=== PATIENT | male | born 1935 | race Caucasian/White ===

== ENCOUNTER 2018-11-20 06:00 | Emergency (ER) | payer SELFPAY ==
[~2018-11-20] VITALS: Ht 177.8 cm; Wt 65.3 kg
[2018-11-20 07:16] LABS: HEMATOCRIT. 46.8 % (42.0-52.0); HEMOGLOBIN. 15.7 g/dL (14.0-18.0); MEAN CORPUSCULAR HEMOGLOBIN 30.7 pg (28.0-32.0); MEAN CORPUSCULAR VOLUME 91.1 fL (80.0-94.0); MEAN PLATELET VOLUME 8.7 fl (7.4-10.4); PLATELET 258 x1000/uL (130-400); RED BLOOD CELL COUNT 5.14 mill/uL (4.7-6.1); RED CELL DISTRIBUTION WIDTH 14.6 % (11.6-14.6)
[2018-11-20 07:22] LABS: CHLORIDE 98 mEq/L (98-107)
[2018-11-20 07:26] LABS: ETHANOL BLOOD < 10 mg/dL
[2018-11-20 07:29] LABS: LDL CHOLESTEROL 85 mg/dL (5-100)
[2018-11-20 07:41] LABS: INR 1.1; PROTHROMBIN TIME 11.4 sec (9.6-11.0)
[2018-11-20] MEDS ORDERED: ASPIRIN 325MG EC TABLET PO ONE (08:00)
[2018-11-20] MEDS ORDERED: ACETAMINOPHEN 325MG TABLET PO PRN (08:15)
[2018-11-20] MEDS ORDERED: ONDANSETRON HCL 4MG/2ML INJ IV PRN (08:15)
[2018-11-20 08:51] LABS: PLATELET ESTIMATE NORMAL
[2018-11-20] MEDS ORDERED: CLOPIDOGREL 75MG TABLET PO SCH (09:00)
[2018-11-20 09:25] VITALS: BP 148/91
[2018-11-20] MEDS ORDERED: ATORVASTATIN CALCIUM 40MG TABLET PO SCH (21:00)
== END 2018-11-20 09:44 | disposition left against medical advice (07) ==
LOC: ER 06:00 → EDBEDREQ 08:04 → ENRESERV 08:45 → CANRESERV 08:45 → ER 09:44 → CANBEDREQ 10:10
DX: R53.1 Weakness (principal); I69.354 Hemiplegia and hemiparesis following cerebral infarction affecting left non-dominant side; I10 Essential (primary) hypertension; E78.00 Pure hypercholesterolemia, unspecified; Z88.0 Allergy status to penicillin
CPT/HCPCS: 36415; 71045; 80320; 83721; 84484; 93005; 93880; 99284; G0480

== ENCOUNTER 2019-02-12 11:30 | Inpatient (IN) | payer MEDICARE, MEDICAID, OTHER ==
[2019-02-12] VITALS (50 sets, daily range): BP systolic -7–201; BP diastolic -12–118
[~2019-02-12] VITALS: Ht 167.6 cm; Wt 79.4 kg
[2019-02-12] MEDS ORDERED: SODIUM BICARBONATE 7.5% 0.9 MEQ/ML 50ML SYR IV ONE (11:40)
[2019-02-12] MEDS ORDERED: EPINEPHRINE 0.1MG/ML (1:10,000) 10ML SYR ONE ×2 (11:40→11:55)
[2019-02-12] MEDS ORDERED: ETOMIDATE 2MG/ML 10ML VIAL IV ONE (11:40)
[2019-02-12] MEDS ORDERED: MEROPENEM 1,000 MG in SODIUM CHLORIDE 0.9% 100 ML IV ONE (11:45)
[2019-02-12] MEDS ORDERED: VANCOMYCIN 1 G PREMIX 200 ML IV ONE (11:45)
[2019-02-12 12:14] LABS: BASOPHILS % 0.6 % (0.0-2.0); EOSINOPHILS % 0.8 % (0.0-5.0); HEMATOCRIT. 40.4 % (42.0-52.0); LYMPHOCYTES % 21.9 % (20.0-50.0); MEAN CORPUSCULAR HEMOGLOBIN 29.1 pg (28.0-32.0); MEAN CORPUSCULAR VOLUME 90.6 fL (80.0-94.0); MEAN PLATELET VOLUME 8.9 fl (7.4-10.4); MONOCYTES % 6.9 % (2.0-8.0); NEUTROPHILS % 69.8 % (40.0-76.0); PLATELET 202 x1000/uL (130-400); RED BLOOD CELL COUNT 4.46 mill/uL (4.7-6.1); RED CELL DISTRIBUTION WIDTH 18.1 % (11.6-14.6)
[2019-02-12] MEDS ORDERED: FENTANYL CITRATE/PF 50MCG/ML 2ML VIAL IV ONE (12:15)
[2019-02-12] MEDS ORDERED: MIDAZOLAM HCL 50 MG in DEXTROSE 5% WATER 40 ML IV ONE (12:15)
[2019-02-12 12:22] LABS: CHLORIDE 101 mEq/L (98-107)
[2019-02-12 12:25] LABS: INR 1.3; PROTHROMBIN TIME 12.7 sec (9.6-11.0)
[2019-02-12] MEDS ORDERED: NOREPINEPHRINE 4MG/250ML PMX 250 ML IV ONE (12:42)
[2019-02-12] MEDS ORDERED: NOREPINEPHRINE 4 MG in DEXT 5% WATER 250 ML IV STA (12:52)
[2019-02-12] MEDS ORDERED: ACETAMINOPHEN 325MG TABLET PO PRN (14:15)
[2019-02-12] MEDS ORDERED: MAGNESIUM/ALUMINUM HYDROXIDE/SIMETHICONE 30ML UDC PO PRN (14:15)
[2019-02-12] MEDS ORDERED: IPRATROPIUM/ALBUTEROL 0.5-3(2.5)MG/3ML NEB HHN PRN (14:15)
[2019-02-12] MEDS ORDERED: CLONIDINE 0.1MG TABLET PO PRN (14:15)
[2019-02-12] MEDS ORDERED: SODIUM CHLORIDE 0.9% 1000ML BAG (SEPSIS BOLUS) IV ONE (14:15)
[2019-02-12] MEDS ORDERED: MORPHINE SULFATE 2 MG/ML CPJ (NOT FOR IM USE) IV PRN (14:15)
[2019-02-12] MEDS ORDERED: CEFEPIME 1,000 MG in DEXTROSE 5% WATER 50 ML IV SCH (14:15)
[2019-02-12] MEDS ORDERED: ONDANSETRON HCL 4MG/2ML INJ IV PRN (14:15)
[2019-02-12] MEDS ORDERED: GUAIFENESIN 200MG/10ML SUGAR FREE UDC PO PRN (14:15)
[2019-02-12 14:16] LABS: BG BASE EXCESS 0.4 mmol/L (-2.0-2.0); BG CARBOXYHEMOGLOBIN 0.6 % (0.5-1.5); BG DEOXYHEMOGLOBIN 1.3 % (0.0-5.0); BG FRACTION INSPIRED OXYGEN 100; BG HCO3 ACT 27.7 mmol/L (22.0-26.0); BG METHEMOGLOBIN 0.3 % (0.0-1.5); BG OXYGEN SATURATION 98.7 % (92.0-98.5); BG OXYHEMOGLOBIN 97.8 % (94.0-97.0); BG PCO2 56.2 mmHg (35.0-45.0); BG PO2 147.3 mmHg (75.0-100.0); BG SAMPLE SITE RIGHT BRACHIAL; BG TIDAL VOLUME(mL) 500 mL; BG VENT MODE VENT - A/C; BG VENT RATE 16 set
[2019-02-12] MEDS ORDERED: SODIUM CHLORIDE 0.9% IV SCH (15:00)
[2019-02-12] MEDS ORDERED: DEXT 5%/LACTATED RINGERS 1,000 ML IV SCH (15:14)
[2019-02-12] MEDS: PROPOFOL 10MG/ML 100ML 100 ML IV PRN ×2 (15:41→22:31)
[2019-02-12 15:44] LABS: BG CARBOXYHEMOGLOBIN 0.3 % (0.5-1.5); BG DEOXYHEMOGLOBIN 7.8 % (0.0-5.0); BG FRACTION INSPIRED OXYGEN 80; BG HCO3 ACT 24.9 mmol/L (22.0-26.0); BG METHEMOGLOBIN 0.4 % (0.0-1.5); BG OXYGEN SATURATION 92.1 % (92.0-98.5); BG OXYHEMOGLOBIN 91.5 % (94.0-97.0); BG PCO2 51.5 mmHg (35.0-45.0); BG PH 7.303 (7.350-7.450); BG SAMPLE SITE RIGHT RADIAL; BG TIDAL VOLUME(mL) 500 mL; BG TOTAL HEMOGLOBIN 13.2 g/dL (12.0-18.0); BG VENT MODE VENT - A/C; BG VENT RATE 16 set
[2019-02-12] MEDS ORDERED: PHENYLEPHRINE 40 MG in DEXT 5% WATER 246 ML IV PRN (15:45)
[2019-02-12] MEDS ORDERED: VECURONIUM BROMIDE 10 MG in DEXT 5% WATER 100 ML IV PRN (15:45)
[2019-02-12] MEDS ORDERED: MEPERIDINE HCL/PF 25MG/ML CPJ IV PRN ×2 (15:45)
[2019-02-12] MEDS ORDERED: VASOPRESSIN IV PRN (15:45)
[2019-02-12] MEDS ORDERED: SODIUM CHLORIDE 0.9% IV PRN (15:45)
[2019-02-12] MEDS ORDERED: ACETAMINOPHEN 650MG SUPP PR PRN (15:45)
[2019-02-12] MEDS: DEXT 5%/0.45% NACL 1000ML 1,000 ML IV SCH ×2 (15:45→22:31)
[2019-02-12 15:46] LABS: FOLIC ACID (FOLATE) SERUM 11.4 ng/mL (>5.38)
[2019-02-12] MEDS ORDERED: SODIUM PHOS M BASIC D BASIC IV PRN (16:15)
[2019-02-12] MEDS ORDERED: DEXT IV PRN (16:15)
[2019-02-12] MEDS ORDERED: MAGNESIUM 2 G PREMIX 50 ML IV PRN (16:15)
[2019-02-12] MEDS ORDERED: WATER IV PRN (16:15)
[2019-02-12] MEDS ORDERED: KCL 20MEQ/100ML PREMIX 100 ML IV PRN (16:15)
[2019-02-12] MEDS ORDERED: CALCIUM GLUCONATE 100MG/ML 10ML VIAL IV PRN (16:15)
[2019-02-12] MEDS ORDERED: VASOPRESSIN 10 UNIT in SODIUM CHLORIDE 0.9% 100 ML IV PRN (16:30)
[2019-02-12] MEDS ORDERED: CALCIUM GLUCONATE 2,000 MG in DEXT 5% WATER 90 ML IV PRN (16:30)
[2019-02-12] MEDS ORDERED: LEVOFLOXACIN 500MG PREMIX 100 ML IV SCH (17:00)
[2019-02-12] MEDS: ENOXAPARIN 40MG/0.4ML SYR SUBCUT SCH (17:13)
[2019-02-12] MEDS: FENTANYL CITRATE/PF 500 MCG in SODIUM CHLORIDE 0.9% 40 ML IV PRN (17:31)
[2019-02-12 18:42] LABS: CLARITY URINE CLEAR (CLEAR); COLOR URINE YELLOW (YELLOW); KETONES URINE NEGATIVE (NEGATIVE); LEUKOCYTE ESTERASE URINE NEGATIVE (NEGATIVE); NITRITE URINE NEGATIVE (NEGATIVE); OCCULT BLOOD URINE NEGATIVE (NEGATIVE); PH URINE 6.5 (4.5-8.0); PROTEIN URINE NEGATIVE (NEGATIVE); UROBILINOGEN URINE 0.2 E.U./dL (0.2-1.0)
[2019-02-12 19:10] LABS: *AMPHETAMINES SCREEN URINE NEGATIVE (NEGATIVE); *BARBITURATES SCREEN URINE NEGATIVE (NEGATIVE); CANNABINOID URINE SCREEN NEGATIVE (NEGATIVE); PHENCYCLIDINE URINE SCREEN NEGATIVE (NEGATIVE)
[2019-02-12 19:11] LABS: *BENZODIAZEPINES SCREEN URINE PRESUMTIVE POSITIVE (NEGATIVE); *COCAINE SCREEN URINE NEGATIVE (NEGATIVE); METHADONE URINE SCREEN NEGATIVE (NEGATIVE); OPIATES URINE SCREEN PRESUMTIVE POSITIVE (NEGATIVE)
[2019-02-12] MEDS: IPRATROPIUM/ALBUTEROL 0.5-3(2.5)MG/3ML NEB HHN SCH (20:16)
[2019-02-12 20:48] LABS: CHLORIDE 104 mEq/L (98-107)
[2019-02-12 20:54] LABS: AMYLASE 18 IU/L (25-115)
[2019-02-12 20:57] LABS: CREATINE KINASE 83 IU/L (39-308)
[2019-02-12 21:00] LABS: CREATINE KINASE MB FRACTION 5.2 ng/mL (0.5-3.6)
[2019-02-12 21:26] LABS: HEPATITIS B SURFACE ANTIGEN NEGATIVE
[2019-02-12 21:56] LABS: HEPATITIS A AB IGM NEGATIVE (NEGATIVE)
[2019-02-12] MEDS ORDERED: METRONIDAZOLE 500 MG PREMIX 100 ML IV SCH (22:00)
[2019-02-13] VITALS (115 sets, daily range): BP systolic 0–220; BP diastolic 0–198
[2019-02-13] MEDS: IPRATROPIUM/ALBUTEROL 0.5-3(2.5)MG/3ML NEB HHN SCH ×6 (00:09→20:39)
[2019-02-13] MEDS: FENTANYL CITRATE/PF 500 MCG in SODIUM CHLORIDE 0.9% 40 ML IV PRN ×4 (00:26→17:36)
[2019-02-13 00:31] LABS: HEMATOCRIT. 35.5 % (42.0-52.0); HEMOGLOBIN. 11.5 g/dL (14.0-18.0); MEAN CORPUSCULAR HEMOGLOBIN 28.8 pg (28.0-32.0); MEAN CORPUSCULAR VOLUME 88.6 fL (80.0-94.0); MEAN PLATELET VOLUME 8.9 fl (7.4-10.4); PLATELET 214 x1000/uL (130-400); RED BLOOD CELL COUNT 4.01 mill/uL (4.7-6.1); RED CELL DISTRIBUTION WIDTH 17.4 % (11.6-14.6)
[2019-02-13 00:36] LABS: INR 1.3; PARTIAL THROMBOPLASTIN TIME 35.4 sec (23.4-31.0); PROTHROMBIN TIME 13.3 sec (9.6-11.0)
[2019-02-13 00:57] LABS: PHOSPHORUS 3.5 mg/dL (2.5-4.9)
[2019-02-13 00:58] LABS: PLATELET ESTIMATE NORMAL
[2019-02-13 01:02] LABS: CREATINE KINASE MB FRACTION 5.8 ng/mL (0.5-3.6)
[2019-02-13 01:22] LABS: CHLORIDE 104 mEq/L (98-107)
[2019-02-13] MEDS ORDERED: KCL 20MEQ/100ML PREMIX 50 ML IV PRN (01:45)
[2019-02-13] MEDS ORDERED: KCL 20 MEQ/100 ML IV PRN (01:45)
[2019-02-13] MEDS: MIDAZOLAM HCL 50 MG in DEXTROSE 5% WATER 40 ML IV PRN ×4 (01:56→17:35)
[2019-02-13] MEDS ORDERED: POTASSIUM CHLORIDE INJ 40 MEQ in DEXT 5% WATER 250 ML IV PRN (02:00)
[2019-02-13] MEDS: VANCOMYCIN 1250MG in DEXTROSE 5% WATER 250ML IV SCH ×2 (03:23→20:13)
[2019-02-13 06:14] LABS: CHLORIDE 102 mEq/L (98-107)
[2019-02-13 06:30] LABS: CREATINE KINASE 71 IU/L (39-308)
[2019-02-13 06:34] LABS: CREATINE KINASE MB FRACTION 7.1 ng/mL (0.5-3.6)
[2019-02-13] MEDS: NOREPINEPHRINE 4 MG in DEXT 5% WATER 250 ML IV PRN ×2 (06:37→09:32)
[2019-02-13] MEDS: DEXT 5%/0.45% NACL 1000ML 1,000 ML IV SCH ×2 (06:51→14:55)
[2019-02-13 08:41] LABS: BG BASE EXCESS -2.1 mmol/L (-2.0-2.0); BG CARBOXYHEMOGLOBIN 0.1 % (0.5-1.5); BG DEOXYHEMOGLOBIN 10.8 % (0.0-5.0); BG FRACTION INSPIRED OXYGEN 80; BG HCO3 ACT 27.2 mmol/L (22.0-26.0); BG METHEMOGLOBIN 0.3 % (0.0-1.5); BG OXYGEN SATURATION 89.2 % (92.0-98.5); BG OXYHEMOGLOBIN 88.8 % (94.0-97.0); BG PH 7.213 (7.350-7.450); BG PO2 66.2 mmHg (75.0-100.0); BG SAMPLE SITE A-LINE; BG TIDAL VOLUME(mL) 500 mL; BG VENT MODE VENT - A/C; BG VENT RATE 16 set
[2019-02-13] MEDS ORDERED: PANTOPRAZOLE SODIUM 40 MG/VIAL IV SCH (09:00)
[2019-02-13] MEDS ORDERED: ASPIRIN 325MG EC TABLET PO SCH (09:00)
[2019-02-13] MEDS: PANTOPRAZOLE SODIUM 40 MG/VIAL IV SCH (09:31)
[2019-02-13] MEDS: ASPIRIN 81MG TABLET PO SCH (09:31)
[2019-02-13] MEDS ORDERED: DEXTROSE 50% WATER 50ML SYRINGE IV PRN (11:15)
[2019-02-13] MEDS: BLOOD SUGAR DIAGNOSTIC STRIP TEST SCH ×3 (12:10→20:01)
[2019-02-13 12:31] LABS: HEMOGLOBIN. 12.1 g/dL (14.0-18.0); MEAN CORPUSCULAR VOLUME 88.6 fL (80.0-94.0); MEAN PLATELET VOLUME 8.8 fl (7.4-10.4); PLATELET 195 x1000/uL (130-400); RED BLOOD CELL COUNT 4.18 mill/uL (4.7-6.1); RED CELL DISTRIBUTION WIDTH 17.7 % (11.6-14.6)
[2019-02-13 12:39] LABS: CHLORIDE 104 mEq/L (98-107)
[2019-02-13 12:40] LABS: INR 1.4; PARTIAL THROMBOPLASTIN TIME 35.8 sec (23.4-31.0); PROTHROMBIN TIME 13.9 sec (9.6-11.0)
[2019-02-13 12:46] LABS: PHOSPHORUS 3.2 mg/dL (2.5-4.9)
[2019-02-13 13:15] LABS: PLATELET ESTIMATE NORMAL
[2019-02-13] MEDS ORDERED: SODIUM CHLORIDE 0.9% 500 ML IV NR (13:15)
[2019-02-13] MEDS ORDERED: INSULIN LISPRO 100 UNITS/ML SUBCUT SCH (13:20)
[2019-02-13] MEDS: ENOXAPARIN 40MG/0.4ML SYR SUBCUT SCH (14:54)
[2019-02-13 15:10] LABS: BG BASE EXCESS -1.5 mmol/L (-2.0-2.0); BG CARBOXYHEMOGLOBIN 0.3 % (0.5-1.5); BG DEOXYHEMOGLOBIN 0.7 % (0.0-5.0); BG FRACTION INSPIRED OXYGEN 100; BG HCO3 ACT 26.6 mmol/L (22.0-26.0); BG METHEMOGLOBIN 0.3 % (0.0-1.5); BG OXYGEN SATURATION 99.3 % (92.0-98.5); BG OXYHEMOGLOBIN 98.7 % (94.0-97.0); BG PCO2 60.3 mmHg (35.0-45.0); BG PH 7.262 (7.350-7.450); BG PO2 221.1 mmHg (75.0-100.0); BG SAMPLE SITE A-LINE; BG TIDAL VOLUME(mL) 500 mL; BG TOTAL HEMOGLOBIN 12.6 g/dL (12.0-18.0); BG VENT MODE VENT - A/C; BG VENT RATE 24 set
[2019-02-13] MEDS: INSULIN LISPRO 100 UNITS/ML SUBCUT SCH ×2 (16:00→20:00)
[2019-02-13 16:43] LABS: HEMATOCRIT. 36.1 % (42.0-52.0); HEMOGLOBIN. 11.9 g/dL (14.0-18.0); MEAN CORPUSCULAR HEMOGLOBIN 29.1 pg (28.0-32.0); MEAN CORPUSCULAR VOLUME 88.2 fL (80.0-94.0); MEAN PLATELET VOLUME 8.7 fl (7.4-10.4); PLATELET 174 x1000/uL (130-400); RED BLOOD CELL COUNT 4.09 mill/uL (4.7-6.1); RED CELL DISTRIBUTION WIDTH 17.5 % (11.6-14.6)
[2019-02-13 16:50] LABS: CHLORIDE 103 mEq/L (98-107)
[2019-02-13 16:55] LABS: INR 1.4; PARTIAL THROMBOPLASTIN TIME 37.3 sec (23.4-31.0); PROTHROMBIN TIME 13.9 sec (9.6-11.0)
[2019-02-13 17:00] LABS: PLATELET ESTIMATE NORMAL
[2019-02-13] MEDS ORDERED: LEVOFLOXACIN 500MG PREMIX 100 ML IV SCH (18:30)
[2019-02-13] MEDS ORDERED: ALBUMIN HUMAN 25GM/500ML (5%) IV NR (20:00)
[2019-02-13 20:17] LABS: HEMATOCRIT. 34.4 % (42.0-52.0); HEMOGLOBIN. 11.4 g/dL (14.0-18.0); MEAN CORPUSCULAR HEMOGLOBIN 28.9 pg (28.0-32.0); MEAN CORPUSCULAR VOLUME 87.4 fL (80.0-94.0); MEAN PLATELET VOLUME 8.8 fl (7.4-10.4); PLATELET 162 x1000/uL (130-400); RED BLOOD CELL COUNT 3.94 mill/uL (4.7-6.1); RED CELL DISTRIBUTION WIDTH 17.2 % (11.6-14.6)
[2019-02-13 20:20] LABS: CHLORIDE 103 mEq/L (98-107)
[2019-02-13 20:25] LABS: INR 1.3; PARTIAL THROMBOPLASTIN TIME 37.6 sec (23.4-31.0); PROTHROMBIN TIME 13.6 sec (9.6-11.0)
[2019-02-13 20:53] LABS: PLATELET ESTIMATE NORMAL
[2019-02-13] MEDS: FENTANYL CITRATE/PF 1,000 MCG in SODIUM CHLORIDE 0.9% 80 ML IV PRN (23:11)
[2019-02-13] MEDS: MIDAZOLAM HCL 100 MG in DEXT 5% WATER 80 ML IV PRN (23:12)
[2019-02-14] VITALS (104 sets, daily range): BP systolic 83–143; BP diastolic 20–74
[2019-02-14 00:18] LABS: HEMATOCRIT. 32.2 % (42.0-52.0); HEMOGLOBIN. 10.6 g/dL (14.0-18.0); MEAN CORPUSCULAR HEMOGLOBIN 29.1 pg (28.0-32.0); MEAN CORPUSCULAR VOLUME 88.2 fL (80.0-94.0); MEAN PLATELET VOLUME 8.7 fl (7.4-10.4); PLATELET 143 x1000/uL (130-400); RED BLOOD CELL COUNT 3.65 mill/uL (4.7-6.1); RED CELL DISTRIBUTION WIDTH 17.3 % (11.6-14.6)
[2019-02-14] MEDS: DEXT 5%/0.45% NACL 1000ML 1,000 ML IV SCH ×4 (00:20→23:18)
[2019-02-14] MEDS: BLOOD SUGAR DIAGNOSTIC STRIP TEST SCH ×6 (00:20→20:57)
[2019-02-14 00:26] LABS: CHLORIDE 103 mEq/L (98-107)
[2019-02-14] MEDS: IPRATROPIUM/ALBUTEROL 0.5-3(2.5)MG/3ML NEB HHN SCH ×6 (00:31→20:38)
[2019-02-14 00:34] LABS: CREATINE KINASE 65 IU/L (39-308)
[2019-02-14 00:36] LABS: CREATINE KINASE MB FRACTION 6.8 ng/mL (0.5-3.6)
[2019-02-14] MEDS: NOREPINEPHRINE 4 MG in DEXT 5% WATER 250 ML IV PRN ×2 (00:37→21:35)
[2019-02-14 00:45] LABS: INR 1.4; PARTIAL THROMBOPLASTIN TIME 37.1 sec (23.4-31.0); PROTHROMBIN TIME 13.9 sec (9.6-11.0)
[2019-02-14] MEDS: INSULIN LISPRO 100 UNITS/ML SUBCUT SCH ×6 (03:43→21:18)
[2019-02-14 04:05] LABS: CHLORIDE 103 mEq/L (98-107)
[2019-02-14 04:06] LABS: INR 1.4
[2019-02-14 04:42] LABS: HEMOGLOBIN. 10.6 g/dL (14.0-18.0); MEAN CORPUSCULAR VOLUME 87.8 fL (80.0-94.0); MEAN PLATELET VOLUME 9.1 fl (7.4-10.4); PLATELET 136 x1000/uL (130-400); RED BLOOD CELL COUNT 3.65 mill/uL (4.7-6.1); RED CELL DISTRIBUTION WIDTH 17.3 % (11.6-14.6)
[2019-02-14 05:14] LABS: BG BASE EXCESS -5.3 mmol/L (-2.0-2.0); BG CARBOXYHEMOGLOBIN 0.1 % (0.5-1.5); BG DEOXYHEMOGLOBIN 1.2 % (0.0-5.0); BG FRACTION INSPIRED OXYGEN 100; BG HCO3 ACT 21.1 mmol/L (22.0-26.0); BG METHEMOGLOBIN 0.3 % (0.0-1.5); BG OXYGEN SATURATION 98.8 % (92.0-98.5); BG OXYHEMOGLOBIN 98.4 % (94.0-97.0); BG PCO2 44.3 mmHg (35.0-45.0); BG PH 7.295 (7.350-7.450); BG PO2 153.9 mmHg (75.0-100.0); BG SAMPLE SITE A-LINE; BG TIDAL VOLUME(mL) 550 mL; BG TOTAL HEMOGLOBIN 11.4 g/dL (12.0-18.0); BG VENT MODE VENT - A/C; BG VENT RATE 24 set
[2019-02-14 07:12] LABS: HIV SCREEN 4G Non Reactive (Non Reactive)
[2019-02-14] MEDS: ASPIRIN 81MG TABLET PO SCH (08:06)
[2019-02-14] MEDS: PANTOPRAZOLE SODIUM 40 MG/VIAL IV SCH (08:06)
[2019-02-14 09:36] LABS: BASOPHILS % 0.2 % (0.0-2.0); HEMATOCRIT. 29.9 % (42.0-52.0); LYMPHOCYTES % 11.6 % (20.0-50.0); MEAN CORPUSCULAR HEMOGLOBIN 28.5 pg (28.0-32.0); MEAN CORPUSCULAR VOLUME 85.7 fL (80.0-94.0); MEAN PLATELET VOLUME 9.2 fl (7.4-10.4); MONOCYTES % 5.9 % (2.0-8.0); NEUTROPHILS % 82.3 % (40.0-76.0); PLATELET 215 x1000/uL (130-400); RED CELL DISTRIBUTION WIDTH 15.9 % (11.6-14.6)
[2019-02-14] MEDS: CLOPIDOGREL 75MG TABLET PO SCH (09:45)
[2019-02-14] MEDS: METHYLPREDNISOLONE SOD SUCC 125 MG/2 ML VIAL IV SCH ×3 (09:45→23:15)
[2019-02-14 09:57] LABS: CHLORIDE 117 mEq/L (98-107)
[2019-02-14 10:08] LABS: PLATELET ESTIMATE NORMAL
[2019-02-14 10:12] LABS: PLATELET ESTIMATE NORMAL
[2019-02-14 10:16] LABS: INR 1.3; PARTIAL THROMBOPLASTIN TIME 37.8 sec (23.4-31.0); PROTHROMBIN TIME 13.7 sec (9.6-11.0)
[2019-02-14] MEDS ORDERED: PHENYLEPHRINE 20 MG in DEXT 5% WATER 248 ML IV PRN (10:30)
[2019-02-14] MEDS: FENTANYL CITRATE/PF 1,000 MCG in SODIUM CHLORIDE 0.9% 80 ML IV PRN ×2 (11:32→19:48)
[2019-02-14] MEDS ORDERED: LIDOCAINE HCL 1% 20ML VIAL (Pyxis) INJ ONE (12:45)
[2019-02-14] MEDS: LEVETIRACETAM 500 MG in SODIUM CHLORIDE 0.9% 100 ML IV SCH ×2 (14:26→23:15)
[2019-02-14] MEDS ORDERED: ENOXAPARIN 30MG/0.3ML SYR SUBCUT SCH (15:00)
[2019-02-14] MEDS ORDERED: VANCOMYCIN 750 MG PREMIX 150 ML IV SCH (15:00)
[2019-02-14 15:07] LABS: CHLORIDE 103 mEq/L (98-107)
[2019-02-14] MEDS: MIDAZOLAM HCL 100 MG in DEXT 5% WATER 80 ML IV PRN (15:17)
[2019-02-14] MEDS: ENOXAPARIN 60MG/0.6ML SYR SUBCUT SCH (15:20)
[2019-02-14] MEDS: ASPIRIN 81MG EC TABLET PO SCH (15:20)
[2019-02-14 15:23] LABS: CLARITY URINE CLEAR (CLEAR); COLOR URINE YELLOW (YELLOW); KETONES URINE NEGATIVE (NEGATIVE); LEUKOCYTE ESTERASE URINE NEGATIVE (NEGATIVE); NITRITE URINE NEGATIVE (NEGATIVE); OCCULT BLOOD URINE NEGATIVE (NEGATIVE); PROTEIN URINE NEGATIVE (NEGATIVE); SPECIFIC GRAVITY URINE 1.005 (1.005-1.030); UROBILINOGEN URINE 0.2 E.U./dL (0.2-1.0)
[2019-02-14] MEDS: LEVOFLOXACIN 250MG PREMIX 50 ML IV SCH (18:02)
[2019-02-14] MEDS: ATORVASTATIN CALCIUM 20MG TABLET PO SCH (21:04)
[2019-02-15] VITALS (96 sets, daily range): BP systolic 85–138; BP diastolic 49–84
[2019-02-15] MEDS: IPRATROPIUM/ALBUTEROL 0.5-3(2.5)MG/3ML NEB HHN SCH ×6 (00:44→20:28)
[2019-02-15] MEDS: BLOOD SUGAR DIAGNOSTIC STRIP TEST SCH ×6 (04:00→20:00)
[2019-02-15] MEDS: METHYLPREDNISOLONE SOD SUCC 125 MG/2 ML VIAL IV SCH ×4 (05:10→21:30)
[2019-02-15] MEDS: INSULIN LISPRO 100 UNITS/ML SUBCUT SCH ×6 (05:18→21:37)
[2019-02-15 06:06] LABS: HEMATOCRIT. 33.6 % (42.0-52.0); MEAN CORPUSCULAR HEMOGLOBIN 29.1 pg (28.0-32.0); MEAN PLATELET VOLUME 9.6 fl (7.4-10.4); PLATELET 133 x1000/uL (130-400); RED BLOOD CELL COUNT 3.78 mill/uL (4.7-6.1); RED CELL DISTRIBUTION WIDTH 17.7 % (11.6-14.6)
[2019-02-15 06:21] LABS: CHLORIDE 103 mEq/L (98-107)
[2019-02-15 06:28] LABS: PHOSPHORUS 3.4 mg/dL (2.5-4.9)
[2019-02-15 06:31] LABS: CREATINE KINASE 51 IU/L (39-308)
[2019-02-15 06:33] LABS: CREATINE KINASE MB FRACTION 3.6 ng/mL (0.5-3.6)
[2019-02-15] MEDS: DEXT 5%/0.45% NACL 1000ML 1,000 ML IV SCH (07:45)
[2019-02-15] MEDS ORDERED: ASPIRIN 325MG TABLET PO SCH (09:00)
[2019-02-15] MEDS: ASPIRIN 81MG EC TABLET PO SCH (09:11)
[2019-02-15] MEDS: PANTOPRAZOLE SODIUM 40 MG/VIAL IV SCH (09:11)
[2019-02-15] MEDS: LEVETIRACETAM 500 MG in SODIUM CHLORIDE 0.9% 100 ML IV SCH ×2 (09:11→21:30)
[2019-02-15] MEDS: CLOPIDOGREL 75MG TABLET PO SCH (09:11)
[2019-02-15 09:31] LABS: BG BASE EXCESS -5.5 mmol/L (-2.0-2.0); BG CARBOXYHEMOGLOBIN 0.3 % (0.5-1.5); BG DEOXYHEMOGLOBIN 0.7 % (0.0-5.0); BG FRACTION INSPIRED OXYGEN 100; BG METHEMOGLOBIN 0.3 % (0.0-1.5); BG OXYGEN SATURATION 99.3 % (92.0-98.5); BG OXYHEMOGLOBIN 98.7 % (94.0-97.0); BG PCO2 52.5 mmHg (35.0-45.0); BG PH 7.241 (7.350-7.450); BG PO2 185.4 mmHg (75.0-100.0); BG SAMPLE SITE RIGHT BRACHIAL; BG TIDAL VOLUME(mL) 550 mL; BG TOTAL HEMOGLOBIN 11.4 g/dL (12.0-18.0); BG VENT MODE VENT - A/C; BG VENT RATE 24 set
[2019-02-15] MEDS ORDERED: MAGNESIUM 2 G PREMIX 50 ML IV NR (10:00)
[2019-02-15 11:01] LABS: PLATELET ESTIMATE NORMAL
[2019-02-15 12:20] LABS: BG BASE EXCESS -8.5 mmol/L (-2.0-2.0); BG CARBOXYHEMOGLOBIN 0.3 % (0.5-1.5); BG DEOXYHEMOGLOBIN 6.7 % (0.0-5.0); BG FRACTION INSPIRED OXYGEN 80; BG HCO3 ACT 17.7 mmol/L (22.0-26.0); BG METHEMOGLOBIN 0.1 % (0.0-1.5); BG OXYGEN SATURATION 93.3 % (92.0-98.5); BG OXYHEMOGLOBIN 92.9 % (94.0-97.0); BG PCO2 39.2 mmHg (35.0-45.0); BG PH 7.273 (7.350-7.450); BG PO2 77.7 mmHg (75.0-100.0); BG SAMPLE SITE RIGHT RADIAL; BG TIDAL VOLUME(mL) 550 mL; BG TOTAL HEMOGLOBIN 11.4 g/dL (12.0-18.0); BG VENT MODE VENT - A/C; BG VENT RATE 28 set
[2019-02-15] MEDS: VANCOMYCIN 1250MG in DEXTROSE 5% WATER 250ML IV SCH (12:41)
[2019-02-15] MEDS: DEXT 5%/0.9% NACL 1,000 ML IV SCH (13:25)
[2019-02-15] MEDS: ENOXAPARIN 60MG/0.6ML SYR SUBCUT SCH (14:37)
[2019-02-15] MEDS: LEVOFLOXACIN 250MG PREMIX 50 ML IV SCH (17:00)
[2019-02-15] MEDS: ATORVASTATIN CALCIUM 20MG TABLET PO SCH (21:30)
[2019-02-16] VITALS (62 sets, daily range): BP systolic 107–152; BP diastolic 51–101
[2019-02-16] MEDS: IPRATROPIUM/ALBUTEROL 0.5-3(2.5)MG/3ML NEB HHN SCH ×5 (00:26→20:24)
[2019-02-16] MEDS: BLOOD SUGAR DIAGNOSTIC STRIP TEST SCH ×5 (01:01→17:16)
[2019-02-16] MEDS: METHYLPREDNISOLONE SOD SUCC 125 MG/2 ML VIAL IV SCH ×4 (05:09→21:25)
[2019-02-16] MEDS: INSULIN LISPRO 100 UNITS/ML SUBCUT SCH ×5 (05:13→17:18)
[2019-02-16] MEDS: VANCOMYCIN 1250MG in DEXTROSE 5% WATER 250ML IV SCH (05:16)
[2019-02-16 05:49] LABS: HEMATOCRIT. 32.8 % (42.0-52.0); HEMOGLOBIN. 10.9 g/dL (14.0-18.0); MEAN CORPUSCULAR HEMOGLOBIN 28.9 pg (28.0-32.0); MEAN CORPUSCULAR VOLUME 87.1 fL (80.0-94.0); MEAN PLATELET VOLUME 9.7 fl (7.4-10.4); PLATELET 127 x1000/uL (130-400); RED BLOOD CELL COUNT 3.77 mill/uL (4.7-6.1); RED CELL DISTRIBUTION WIDTH 17.4 % (11.6-14.6)
[2019-02-16 05:58] LABS: CHLORIDE 106 mEq/L (98-107)
[2019-02-16 06:04] LABS: PHOSPHORUS 2.3 mg/dL (2.5-4.9)
[2019-02-16 08:12] LABS: INR 1.1; PROTHROMBIN TIME 11.8 sec (9.6-11.0)
[2019-02-16] MEDS: DEXT 5%/0.9% NACL 1,000 ML IV SCH (08:49)
[2019-02-16] MEDS: PANTOPRAZOLE SODIUM 40 MG/VIAL IV SCH (09:16)
[2019-02-16] MEDS: ASPIRIN 81MG EC TABLET PO SCH (09:16)
[2019-02-16] MEDS: LEVETIRACETAM 500 MG in SODIUM CHLORIDE 0.9% 100 ML IV SCH ×2 (09:17→21:25)
[2019-02-16] MEDS: CLOPIDOGREL 75MG TABLET PO SCH (09:23)
[2019-02-16 09:31] LABS: BG BASE EXCESS -2.8 mmol/L (-2.0-2.0); BG CARBOXYHEMOGLOBIN 0.1 % (0.5-1.5); BG DEOXYHEMOGLOBIN 1.8 % (0.0-5.0); BG FRACTION INSPIRED OXYGEN 80; BG HCO3 ACT 22.1 mmol/L (22.0-26.0); BG METHEMOGLOBIN 0.4 % (0.0-1.5); BG OXYGEN SATURATION 98.2 % (92.0-98.5); BG OXYHEMOGLOBIN 97.7 % (94.0-97.0); BG PCO2 38.7 mmHg (35.0-45.0); BG PH 7.374 (7.350-7.450); BG PO2 115.8 mmHg (75.0-100.0); BG SAMPLE SITE RIGHT BRACHIAL; BG TIDAL VOLUME(mL) 550 mL; BG TOTAL HEMOGLOBIN 11.3 g/dL (12.0-18.0); BG VENT MODE VENT - A/C; BG VENT RATE 28 set
[2019-02-16 09:58] LABS: CREATINE KINASE MB FRACTION 1.7 ng/mL (0.5-3.6)
[2019-02-16] MEDS ORDERED: SODIUM PHOS,M-BASIC-D-BASIC 15 MM in DEXT 5% WATER 245 ML IV NR (10:00)
[2019-02-16] MEDS: METOCLOPRAMIDE HCL 10MG/2ML VIAL IV SCH ×2 (12:37→17:16)
[2019-02-16 14:24] LABS: PLATELET ESTIMATE SLIGHTLY DECREASED
[2019-02-16] MEDS: ENOXAPARIN 60MG/0.6ML SYR SUBCUT SCH (15:05)
[2019-02-16] MEDS: LEVOFLOXACIN 500MG PREMIX 100 ML IV SCH (17:17)
[2019-02-16] MEDS: ATORVASTATIN CALCIUM 20MG TABLET PO SCH (21:25)
[2019-02-17] VITALS (44 sets, daily range): BP systolic 121–152; BP diastolic 72–97
[2019-02-17] MEDS: IPRATROPIUM/ALBUTEROL 0.5-3(2.5)MG/3ML NEB HHN SCH ×6 (00:09→20:44)
[2019-02-17] MEDS: VANCOMYCIN 1250MG in DEXTROSE 5% WATER 250ML IV SCH ×2 (01:19→17:12)
[2019-02-17] MEDS: METOCLOPRAMIDE HCL 10MG/2ML VIAL IV SCH ×4 (01:19→17:12)
[2019-02-17] MEDS: METHYLPREDNISOLONE SOD SUCC 125 MG/2 ML VIAL IV SCH (04:16)
[2019-02-17] MEDS: BLOOD SUGAR DIAGNOSTIC STRIP TEST SCH ×4 (05:27→17:59)
[2019-02-17] MEDS: DEXT 5%/0.9% NACL 1,000 ML IV SCH (05:28)
[2019-02-17] MEDS: INSULIN LISPRO 100 UNITS/ML SUBCUT SCH ×4 (05:32→17:59)
[2019-02-17 06:16] LABS: HEMATOCRIT. 34.3 % (42.0-52.0); HEMOGLOBIN. 11.3 g/dL (14.0-18.0); MEAN CORPUSCULAR VOLUME 87.6 fL (80.0-94.0); MEAN PLATELET VOLUME 9.7 fl (7.4-10.4); PLATELET 111 x1000/uL (130-400); RED BLOOD CELL COUNT 3.91 mill/uL (4.7-6.1); RED CELL DISTRIBUTION WIDTH 18.2 % (11.6-14.6)
[2019-02-17 06:29] LABS: CHLORIDE 106 mEq/L (98-107)
[2019-02-17 06:40] LABS: PHOSPHORUS 2.1 mg/dL (2.5-4.9)
[2019-02-17 08:34] LABS: BG BASE EXCESS -0.6 mmol/L (-2.0-2.0); BG CARBOXYHEMOGLOBIN 0.3 % (0.5-1.5); BG DEOXYHEMOGLOBIN 8.5 % (0.0-5.0); BG FRACTION INSPIRED OXYGEN 60; BG HCO3 ACT 22.6 mmol/L (22.0-26.0); BG METHEMOGLOBIN 0.1 % (0.0-1.5); BG OXYGEN SATURATION 91.5 % (92.0-98.5); BG OXYHEMOGLOBIN 91.1 % (94.0-97.0); BG PCO2 32.5 mmHg (35.0-45.0); BG SAMPLE SITE LEFT RADIAL; BG TOTAL HEMOGLOBIN 12.5 g/dL (12.0-18.0); BG VENT MODE VENT - A/C; BG VENT RATE 28 set
[2019-02-17] MEDS ORDERED: MAGNESIUM 2 G PREMIX 50 ML IV NR (09:00)
[2019-02-17] MEDS ORDERED: LORAZEPAM 2MG/ML CPJ IV PRN (09:15)
[2019-02-17] MEDS: LEVETIRACETAM 500 MG in SODIUM CHLORIDE 0.9% 100 ML IV SCH ×2 (09:18→22:29)
[2019-02-17] MEDS: CLOPIDOGREL 75MG TABLET PO SCH (09:18)
[2019-02-17] MEDS: ASPIRIN 81MG EC TABLET PO SCH (09:18)
[2019-02-17 10:08] LABS: PLATELET ESTIMATE SLIGHTLY DECREASED
[2019-02-17] MEDS: MORPHINE SULFATE 2 MG/ML CPJ (NOT FOR IM USE) IV PRN ×3 (11:09→16:37)
[2019-02-17] MEDS: PANTOPRAZOLE SODIUM 40 MG/VIAL IV SCH (11:45)
[2019-02-17] MEDS: LORAZEPAM 2MG/ML CPJ IV PRN ×3 (11:45→16:37)
[2019-02-17] MEDS: AZTREONAM 2GM in DEXTROSE 5% WATER 100ML IV SCH ×2 (11:45→19:22)
[2019-02-17] MEDS: LOSARTAN POTASSIUM 25 MG TABLET PO SCH (12:15)
[2019-02-17] MEDS: METHYLPREDNISOLONE SOD SUCC 40 MG/ML VIAL IV SCH ×2 (13:12→22:35)
[2019-02-17] MEDS ORDERED: SODIUM PHOS,M-BASIC-D-BASIC 15 MM in DEXT 5% WATER 245 ML IV SCH (13:30)
[2019-02-17] MEDS: ENOXAPARIN 60MG/0.6ML SYR SUBCUT SCH (14:28)
[2019-02-17] MEDS: LEVOFLOXACIN 500MG PREMIX 100 ML IV SCH (17:13)
[2019-02-17] MEDS: ASCORBIC ACID 500 MG TABLET PO SCH (20:42)
[2019-02-17] MEDS: ZINC SULFATE 220 MG ( 50 ) CAPSULE PO SCH (20:42)
[2019-02-18] VITALS (36 sets, daily range): BP systolic 135–163; BP diastolic 74–97
[2019-02-18] MEDS: METOCLOPRAMIDE HCL 10MG/2ML VIAL IV SCH ×4 (00:03→17:14)
[2019-02-18] MEDS: BLOOD SUGAR DIAGNOSTIC STRIP TEST SCH ×4 (00:03→18:12)
[2019-02-18] MEDS: IPRATROPIUM/ALBUTEROL 0.5-3(2.5)MG/3ML NEB HHN SCH ×7 (00:46→20:42)
[2019-02-18] MEDS: AZTREONAM 2GM in DEXTROSE 5% WATER 100ML IV SCH ×3 (04:08→19:56)
[2019-02-18 05:43] LABS: HEMATOCRIT. 34.4 % (42.0-52.0); HEMOGLOBIN. 11.5 g/dL (14.0-18.0); MEAN CORPUSCULAR HEMOGLOBIN 28.9 pg (28.0-32.0); MEAN CORPUSCULAR VOLUME 86.3 fL (80.0-94.0); MEAN PLATELET VOLUME 9.2 fl (7.4-10.4); PLATELET 86 x1000/uL (130-400); RED BLOOD CELL COUNT 3.99 mill/uL (4.7-6.1); RED CELL DISTRIBUTION WIDTH 18.3 % (11.6-14.6)
[2019-02-18 05:55] LABS: CHLORIDE 107 mEq/L (98-107)
[2019-02-18 06:06] LABS: PHOSPHORUS 3.3 mg/dL (2.5-4.9)
[2019-02-18] MEDS: METHYLPREDNISOLONE SOD SUCC 40 MG/ML VIAL IV SCH ×3 (06:09→21:09)
[2019-02-18] MEDS: INSULIN LISPRO 100 UNITS/ML SUBCUT SCH ×4 (06:17→17:14)
[2019-02-18 07:35] LABS: BG BASE EXCESS -2.6 mmol/L (-2.0-2.0); BG CARBOXYHEMOGLOBIN 0.4 % (0.5-1.5); BG DEOXYHEMOGLOBIN 3.9 % (0.0-5.0); BG FRACTION INSPIRED OXYGEN 80; BG HCO3 ACT 21.5 mmol/L (22.0-26.0); BG METHEMOGLOBIN 0.3 % (0.0-1.5); BG OXYGEN SATURATION 96.1 % (92.0-98.5); BG OXYHEMOGLOBIN 95.4 % (94.0-97.0); BG PCO2 34.9 mmHg (35.0-45.0); BG PH 7.407 (7.350-7.450); BG PO2 86.6 mmHg (75.0-100.0); BG SAMPLE SITE LEFT RADIAL; BG TIDAL VOLUME(mL) 550 mL; BG TOTAL HEMOGLOBIN 12.4 g/dL (12.0-18.0); BG VENT MODE VENT - A/C; BG VENT RATE 20 set
[2019-02-18] MEDS: PANTOPRAZOLE SODIUM 40 MG/VIAL IV SCH (08:54)
[2019-02-18] MEDS: LEVETIRACETAM 500 MG in SODIUM CHLORIDE 0.9% 100 ML IV SCH (08:55)
[2019-02-18] MEDS: LOSARTAN POTASSIUM 25 MG TABLET PO SCH (08:55)
[2019-02-18] MEDS: ZINC SULFATE 220 MG ( 50 ) CAPSULE PO SCH (08:56)
[2019-02-18] MEDS: DOCUSATE SODIUM 100MG CAPSULE PO PRN (08:56)
[2019-02-18] MEDS: ASCORBIC ACID 500 MG TABLET PO SCH (08:56)
[2019-02-18] MEDS: ASPIRIN 81MG EC TABLET PO SCH (09:00)
[2019-02-18] MEDS: CLOPIDOGREL 75MG TABLET PO SCH (09:00)
[2019-02-18 09:11] LABS: PLATELET ESTIMATE SLIGHTLY DECREASED
[2019-02-18] MEDS ORDERED: IOHEXOL-350 100 ML BOTTLE ONE (10:47)
[2019-02-18] MEDS: AMLODIPINE 2.5MG TABLET PO SCH ×2 (11:56→21:09)
[2019-02-18] MEDS: VANCOMYCIN 1250MG in DEXTROSE 5% WATER 250ML IV SCH (11:56)
[2019-02-18] MEDS: LORAZEPAM 2MG/ML CPJ IV PRN (16:36)
[2019-02-18] MEDS: MORPHINE SULFATE 2 MG/ML CPJ (NOT FOR IM USE) IV PRN (16:37)
[2019-02-18] MEDS: LEVOFLOXACIN 500MG PREMIX 100 ML IV SCH (17:14)
[2019-02-19] VITALS (23 sets, daily range): BP systolic 109–154; BP diastolic 69–99
[2019-02-19] MEDS: IPRATROPIUM/ALBUTEROL 0.5-3(2.5)MG/3ML NEB HHN SCH ×6 (00:38→20:33)
[2019-02-19] MEDS: LEVETIRACETAM 500 MG in SODIUM CHLORIDE 0.9% 100 ML IV SCH ×3 (01:34→21:02)
[2019-02-19] MEDS: METOCLOPRAMIDE HCL 10MG/2ML VIAL IV SCH ×5 (01:35→23:34)
[2019-02-19] MEDS: INSULIN LISPRO 100 UNITS/ML SUBCUT SCH ×5 (01:46→23:34)
[2019-02-19] MEDS: AZTREONAM 2GM in DEXTROSE 5% WATER 100ML IV SCH ×3 (04:24→21:00)
[2019-02-19 05:40] LABS: HEMATOCRIT. 34.3 % (42.0-52.0); HEMOGLOBIN. 11.5 g/dL (14.0-18.0); MEAN CORPUSCULAR VOLUME 86.2 fL (80.0-94.0); MEAN PLATELET VOLUME 9.6 fl (7.4-10.4); PLATELET 77 x1000/uL (130-400); RED BLOOD CELL COUNT 3.98 mill/uL (4.7-6.1); RED CELL DISTRIBUTION WIDTH 18.2 % (11.6-14.6)
[2019-02-19 05:58] LABS: CHLORIDE 107 mEq/L (98-107)
[2019-02-19 06:04] LABS: PHOSPHORUS 3.3 mg/dL (2.5-4.9)
[2019-02-19] MEDS: BLOOD SUGAR DIAGNOSTIC STRIP TEST SCH ×5 (06:32→23:34)
[2019-02-19] MEDS: VANCOMYCIN 1250MG in DEXTROSE 5% WATER 250ML IV SCH (06:32)
[2019-02-19] MEDS: METHYLPREDNISOLONE SOD SUCC 40 MG/ML VIAL IV SCH ×3 (06:32→21:06)
[2019-02-19] MEDS: AMLODIPINE 2.5MG TABLET PO SCH ×2 (08:24→21:00)
[2019-02-19] MEDS: ASCORBIC ACID 500 MG TABLET PO SCH (08:24)
[2019-02-19] MEDS: LOSARTAN POTASSIUM 25 MG TABLET PO SCH ×2 (08:24→21:00)
[2019-02-19] MEDS: DOCUSATE SODIUM 100MG CAPSULE PO PRN (08:24)
[2019-02-19] MEDS: ZINC SULFATE 220 MG ( 50 ) CAPSULE PO SCH (08:24)
[2019-02-19] MEDS: PANTOPRAZOLE SODIUM 40 MG/VIAL IV SCH (08:26)
[2019-02-19 08:42] LABS: BG BASE EXCESS -4.2 mmol/L (-2.0-2.0); BG CARBOXYHEMOGLOBIN 0.3 % (0.5-1.5); BG DEOXYHEMOGLOBIN 2.1 % (0.0-5.0); BG FRACTION INSPIRED OXYGEN 80; BG HCO3 ACT 19.9 mmol/L (22.0-26.0); BG METHEMOGLOBIN 0.3 % (0.0-1.5); BG OXYGEN SATURATION 97.9 % (92.0-98.5); BG OXYHEMOGLOBIN 97.3 % (94.0-97.0); BG PCO2 33.6 mmHg (35.0-45.0); BG PH 7.391 (7.350-7.450); BG PO2 115.7 mmHg (75.0-100.0); BG SAMPLE SITE LEFT BRACHIAL; BG TIDAL VOLUME(mL) 550 mL; BG TOTAL HEMOGLOBIN 12.7 g/dL (12.0-18.0); BG VENT MODE VENT - A/C; BG VENT RATE 20 set
[2019-02-19 12:31] LABS: PLATELET ESTIMATE DECREASED
[2019-02-19] MEDS ORDERED: LACTULOSE 20G/30ML UDC PO NR (12:45)
[2019-02-19] MEDS ORDERED: BISACODYL 10MG SUPP PR PRN (12:45)
[2019-02-19] MEDS: DOCUSATE SODIUM SUGAR FREE 100MG/10ML UDC NG SCH (13:44)
[2019-02-19] MEDS: LEVOFLOXACIN 500MG PREMIX 100 ML IV SCH (17:08)
[2019-02-20] VITALS (24 sets, daily range): BP systolic 115–144; BP diastolic 64–91
[2019-02-20] MEDS: IPRATROPIUM/ALBUTEROL 0.5-3(2.5)MG/3ML NEB HHN SCH ×6 (00:24→21:17)
[2019-02-20] MEDS: AZTREONAM 2GM in DEXTROSE 5% WATER 100ML IV SCH ×3 (03:29→21:04)
[2019-02-20 05:24] LABS: HEMATOCRIT. 33.9 % (42.0-52.0); HEMOGLOBIN. 11.2 g/dL (14.0-18.0); MEAN CORPUSCULAR HEMOGLOBIN 28.6 pg (28.0-32.0); MEAN CORPUSCULAR VOLUME 86.7 fL (80.0-94.0); MEAN PLATELET VOLUME 9.5 fl (7.4-10.4); PLATELET 80 x1000/uL (130-400); RED BLOOD CELL COUNT 3.91 mill/uL (4.7-6.1); RED CELL DISTRIBUTION WIDTH 18.3 % (11.6-14.6)
[2019-02-20 05:26] LABS: CHLORIDE 106 mEq/L (98-107)
[2019-02-20 05:35] LABS: PHOSPHORUS 3.5 mg/dL (2.5-4.9)
[2019-02-20] MEDS: METHYLPREDNISOLONE SOD SUCC 40 MG/ML VIAL IV SCH ×2 (05:46→17:15)
[2019-02-20] MEDS: INSULIN LISPRO 100 UNITS/ML SUBCUT SCH ×4 (05:46→23:20)
[2019-02-20] MEDS: METOCLOPRAMIDE HCL 10MG/2ML VIAL IV SCH ×4 (05:46→23:20)
[2019-02-20] MEDS: BLOOD SUGAR DIAGNOSTIC STRIP TEST SCH ×4 (05:54→23:17)
[2019-02-20] MEDS: DOCUSATE SODIUM SUGAR FREE 100MG/10ML UDC NG SCH (08:10)
[2019-02-20] MEDS: LEVETIRACETAM 500 MG in SODIUM CHLORIDE 0.9% 100 ML IV SCH ×2 (08:10→21:04)
[2019-02-20] MEDS: ASCORBIC ACID 500 MG TABLET PO SCH (08:11)
[2019-02-20] MEDS: PANTOPRAZOLE SODIUM 40 MG/VIAL IV SCH (08:11)
[2019-02-20] MEDS: ZINC SULFATE 220 MG ( 50 ) CAPSULE PO SCH (08:11)
[2019-02-20] MEDS: LOSARTAN POTASSIUM 25 MG TABLET PO SCH ×2 (08:11→21:00)
[2019-02-20] MEDS: AMLODIPINE 2.5MG TABLET PO SCH ×2 (08:11→21:00)
[2019-02-20 08:18] LABS: BG BASE EXCESS 0.9 mmol/L (-2.0-2.0); BG CARBOXYHEMOGLOBIN 0.3 % (0.5-1.5); BG DEOXYHEMOGLOBIN 11.6 % (0.0-5.0); BG FRACTION INSPIRED OXYGEN 75; BG METHEMOGLOBIN 0.1 % (0.0-1.5); BG OXYGEN SATURATION 88.4 % (92.0-98.5); BG PH 7.436 (7.350-7.450); BG PO2 56.4 mmHg (75.0-100.0); BG SAMPLE SITE RIGHT RADIAL; BG TIDAL VOLUME(mL) 550 mL; BG TOTAL HEMOGLOBIN 12.8 g/dL (12.0-18.0); BG VENT MODE VENT - A/C; BG VENT RATE 20 set
[2019-02-20 11:27] LABS: PLATELET ESTIMATE SLIGHTLY DECREASED
[2019-02-20] MEDS ORDERED: LACTULOSE 20G/30ML UDC PO NR (12:00)
[2019-02-20] MEDS: LEVOFLOXACIN 500MG PREMIX 100 ML IV SCH (17:15)
[2019-02-21] VITALS (24 sets, daily range): BP systolic 102–142; BP diastolic 58–89
[2019-02-21] MEDS: IPRATROPIUM/ALBUTEROL 0.5-3(2.5)MG/3ML NEB HHN SCH ×5 (00:44→20:20)
[2019-02-21] MEDS: AZTREONAM 2GM in DEXTROSE 5% WATER 100ML IV SCH ×3 (03:25→20:09)
[2019-02-21 05:17] LABS: CHLORIDE 107 mEq/L (98-107)
[2019-02-21 05:20] LABS: HEMATOCRIT. 33.8 % (42.0-52.0); HEMOGLOBIN. 11.2 g/dL (14.0-18.0); MEAN CORPUSCULAR HEMOGLOBIN 28.6 pg (28.0-32.0); MEAN CORPUSCULAR VOLUME 86.3 fL (80.0-94.0); MEAN PLATELET VOLUME 9.4 fl (7.4-10.4); PLATELET 88 x1000/uL (130-400); RED BLOOD CELL COUNT 3.92 mill/uL (4.7-6.1); RED CELL DISTRIBUTION WIDTH 18.2 % (11.6-14.6)
[2019-02-21] MEDS: BLOOD SUGAR DIAGNOSTIC STRIP TEST SCH ×3 (05:26→17:25)
[2019-02-21] MEDS: INSULIN LISPRO 100 UNITS/ML SUBCUT SCH ×3 (05:26→17:25)
[2019-02-21] MEDS: METOCLOPRAMIDE HCL 10MG/2ML VIAL IV SCH ×3 (05:26→17:25)
[2019-02-21] MEDS: PANTOPRAZOLE SODIUM 40 MG/VIAL IV SCH (08:06)
[2019-02-21] MEDS: DOCUSATE SODIUM SUGAR FREE 100MG/10ML UDC NG SCH (08:06)
[2019-02-21] MEDS: AMLODIPINE 2.5MG TABLET PO SCH ×2 (08:07→20:53)
[2019-02-21] MEDS: ASCORBIC ACID 500 MG TABLET PO SCH (08:07)
[2019-02-21] MEDS: ZINC SULFATE 220 MG ( 50 ) CAPSULE PO SCH (08:07)
[2019-02-21] MEDS: METHYLPREDNISOLONE SOD SUCC 40 MG/ML VIAL IV SCH ×2 (08:07→17:24)
[2019-02-21] MEDS: LOSARTAN POTASSIUM 25 MG TABLET PO SCH ×2 (08:07→20:53)
[2019-02-21 08:41] LABS: PLATELET ESTIMATE SLIGHTLY DECREASED
[2019-02-21 09:05] LABS: BG CARBOXYHEMOGLOBIN 0.2 % (0.5-1.5); BG DEOXYHEMOGLOBIN 1.8 % (0.0-5.0); BG FRACTION INSPIRED OXYGEN 90; BG METHEMOGLOBIN 0.3 % (0.0-1.5); BG OXYGEN SATURATION 98.2 % (92.0-98.5); BG OXYHEMOGLOBIN 97.7 % (94.0-97.0); BG PCO2 34.9 mmHg (35.0-45.0); BG PH 7.417 (7.350-7.450); BG PO2 126.2 mmHg (75.0-100.0); BG SAMPLE SITE RIGHT BRACHIAL; BG TIDAL VOLUME(mL) 550 mL; BG TOTAL HEMOGLOBIN 12.1 g/dL (12.0-18.0); BG VENT MODE VENT - A/C; BG VENT RATE 20 set
[2019-02-21] MEDS: LEVETIRACETAM 500 MG in SODIUM CHLORIDE 0.9% 100 ML IV SCH ×2 (09:14→21:02)
[2019-02-21] MEDS: LEVOFLOXACIN 500MG PREMIX 100 ML IV SCH (17:25)
[2019-02-22] VITALS (36 sets, daily range): BP systolic 66–147; BP diastolic 32–95
[2019-02-22] MEDS: BLOOD SUGAR DIAGNOSTIC STRIP TEST SCH ×4 (00:25→18:40)
[2019-02-22] MEDS: METOCLOPRAMIDE HCL 10MG/2ML VIAL IV SCH ×5 (00:25→23:56)
[2019-02-22] MEDS: IPRATROPIUM/ALBUTEROL 0.5-3(2.5)MG/3ML NEB HHN SCH ×6 (00:36→20:37)
[2019-02-22] MEDS: AZTREONAM 2GM in DEXTROSE 5% WATER 100ML IV SCH ×3 (03:40→21:19)
[2019-02-22] MEDS: INSULIN LISPRO 100 UNITS/ML SUBCUT SCH ×4 (06:18→18:00)
[2019-02-22] MEDS: LEVETIRACETAM 500 MG in SODIUM CHLORIDE 0.9% 100 ML IV SCH ×2 (08:33→21:20)
[2019-02-22] MEDS: LOSARTAN POTASSIUM 25 MG TABLET PO SCH ×2 (08:33→21:00)
[2019-02-22] MEDS: DOCUSATE SODIUM 100MG CAPSULE PO PRN (08:33)
[2019-02-22] MEDS: ZINC SULFATE 220 MG ( 50 ) CAPSULE PO SCH (08:33)
[2019-02-22] MEDS: ASCORBIC ACID 500 MG TABLET PO SCH (08:33)
[2019-02-22] MEDS: METHYLPREDNISOLONE SOD SUCC 40 MG/ML VIAL IV SCH (08:33)
[2019-02-22] MEDS: PANTOPRAZOLE SODIUM 40 MG/VIAL IV SCH (08:33)
[2019-02-22] MEDS: DOCUSATE SODIUM SUGAR FREE 100MG/10ML UDC NG SCH (08:34)
[2019-02-22] MEDS: AMLODIPINE 2.5MG TABLET PO SCH ×2 (08:34→21:00)
[2019-02-22 09:23] LABS: HEMOGLOBIN. 11.8 g/dL (14.0-18.0); MEAN CORPUSCULAR HEMOGLOBIN 28.4 pg (28.0-32.0); MEAN CORPUSCULAR VOLUME 86.4 fL (80.0-94.0); MEAN PLATELET VOLUME 9.3 fl (7.4-10.4); PLATELET 109 x1000/uL (130-400); RED BLOOD CELL COUNT 4.17 mill/uL (4.7-6.1); RED CELL DISTRIBUTION WIDTH 18.6 % (11.6-14.6)
[2019-02-22 09:30] LABS: BG BASE EXCESS 2.2 mmol/L (-2.0-2.0); BG CARBOXYHEMOGLOBIN 0.3 % (0.5-1.5); BG DEOXYHEMOGLOBIN 3.9 % (0.0-5.0); BG FRACTION INSPIRED OXYGEN 70; BG HCO3 ACT 25.7 mmol/L (22.0-26.0); BG METHEMOGLOBIN 0.3 % (0.0-1.5); BG OXYGEN SATURATION 96.1 % (92.0-98.5); BG OXYHEMOGLOBIN 95.5 % (94.0-97.0); BG PCO2 36.4 mmHg (35.0-45.0); BG PH 7.467 (7.350-7.450); BG PO2 83.7 mmHg (75.0-100.0); BG SAMPLE SITE RIGHT BRACHIAL; BG TIDAL VOLUME(mL) 550 mL; BG TOTAL HEMOGLOBIN 12.3 g/dL (12.0-18.0); BG VENT MODE VENT - A/C; BG VENT RATE 20 set
[2019-02-22 09:32] LABS: CHLORIDE 106 mEq/L (98-107)
[2019-02-22 10:08] LABS: PLATELET ESTIMATE DECREASED
[2019-02-22] MEDS: LORAZEPAM 2MG/ML CPJ IV PRN (14:11)
[2019-02-22] MEDS: MORPHINE SULFATE 2 MG/ML CPJ (NOT FOR IM USE) IV PRN (16:14)
[2019-02-23] VITALS (59 sets, daily range): BP systolic 92–144; BP diastolic 51–86
[2019-02-23] MEDS: BLOOD SUGAR DIAGNOSTIC STRIP TEST SCH ×4 (00:03→17:31)
[2019-02-23] MEDS: INSULIN LISPRO 100 UNITS/ML SUBCUT SCH ×4 (00:03→17:35)
[2019-02-23] MEDS: IPRATROPIUM/ALBUTEROL 0.5-3(2.5)MG/3ML NEB HHN SCH ×6 (00:42→19:56)
[2019-02-23] MEDS: AZTREONAM 2GM in DEXTROSE 5% WATER 100ML IV SCH ×3 (04:32→20:13)
[2019-02-23] MEDS: METOCLOPRAMIDE HCL 10MG/2ML VIAL IV SCH ×4 (05:15→23:45)
[2019-02-23] MEDS: MORPHINE SULFATE 2 MG/ML CPJ (NOT FOR IM USE) IV PRN (07:23)
[2019-02-23 07:54] LABS: BG BASE EXCESS 3.3 mmol/L (-2.0-2.0); BG CARBOXYHEMOGLOBIN 0.1 % (0.5-1.5); BG DEOXYHEMOGLOBIN 9.5 % (0.0-5.0); BG HCO3 ACT 26.5 mmol/L (22.0-26.0); BG METHEMOGLOBIN 0.3 % (0.0-1.5); BG OXYGEN SATURATION 90.5 % (92.0-98.5); BG OXYHEMOGLOBIN 90.1 % (94.0-97.0); BG PCO2 35.6 mmHg (35.0-45.0); BG PO2 57.3 mmHg (75.0-100.0); BG SAMPLE SITE RIGHT BRACHIAL; BG TIDAL VOLUME(mL) 550 mL; BG TOTAL HEMOGLOBIN 12.6 g/dL (12.0-18.0); BG VENT MODE VENT - A/C; BG VENT RATE 20 set
[2019-02-23] MEDS: DOCUSATE SODIUM SUGAR FREE 100MG/10ML UDC NG SCH (08:29)
[2019-02-23] MEDS: METHYLPREDNISOLONE SOD SUCC 40 MG/ML VIAL IV SCH (08:29)
[2019-02-23] MEDS: AMLODIPINE 2.5MG TABLET PO SCH ×2 (08:29→21:00)
[2019-02-23] MEDS: LOSARTAN POTASSIUM 25 MG TABLET PO SCH ×2 (08:29→21:00)
[2019-02-23] MEDS: PANTOPRAZOLE SODIUM 40 MG/VIAL IV SCH (08:29)
[2019-02-23] MEDS: ZINC SULFATE 220 MG ( 50 ) CAPSULE PO SCH (08:29)
[2019-02-23] MEDS: ASCORBIC ACID 500 MG TABLET PO SCH (08:30)
[2019-02-23] MEDS: SODIUM CHLORIDE 0.9% 1,000 ML IV SCH ×2 (08:30→17:34)
[2019-02-23] MEDS: LEVETIRACETAM 500 MG in SODIUM CHLORIDE 0.9% 100 ML IV SCH ×2 (08:32→21:14)
[2019-02-23 12:56] LABS: CHLORIDE 104 mEq/L (98-107)
[2019-02-23] MEDS ORDERED: FENTANYL CITRATE/PF 50MCG/ML 2ML VIAL ONE (12:57)
[2019-02-23] MEDS ORDERED: MIDAZOLAM HCL 5 MG/5 ML VIAL ONE (12:58)
[2019-02-23] MEDS: DEXTROSE 5% WATER 1,000 ML IV SCH (22:46)
[2019-02-24] VITALS (77 sets, daily range): BP systolic 88–154; BP diastolic 14–109
[2019-02-24] MEDS: IPRATROPIUM/ALBUTEROL 0.5-3(2.5)MG/3ML NEB HHN SCH ×6 (00:50→20:50)
[2019-02-24] MEDS: AZTREONAM 2GM in DEXTROSE 5% WATER 100ML IV SCH ×3 (03:25→21:20)
[2019-02-24] MEDS: BLOOD SUGAR DIAGNOSTIC STRIP TEST SCH ×4 (05:47→18:24)
[2019-02-24] MEDS: METOCLOPRAMIDE HCL 10MG/2ML VIAL IV SCH ×3 (05:54→18:29)
[2019-02-24] MEDS: INSULIN LISPRO 100 UNITS/ML SUBCUT SCH ×4 (05:55→18:00)
[2019-02-24] MEDS: DOCUSATE SODIUM SUGAR FREE 100MG/10ML UDC NG SCH (07:26)
[2019-02-24] MEDS: LOSARTAN POTASSIUM 25 MG TABLET PO SCH ×2 (07:27→21:00)
[2019-02-24] MEDS: ASCORBIC ACID 500 MG TABLET PO SCH (07:27)
[2019-02-24] MEDS: AMLODIPINE 2.5MG TABLET PO SCH ×2 (07:27→21:00)
[2019-02-24] MEDS: ZINC SULFATE 220 MG ( 50 ) CAPSULE PO SCH (07:27)
[2019-02-24] MEDS: PANTOPRAZOLE SODIUM 40 MG/VIAL IV SCH (09:00)
[2019-02-24] MEDS: LEVETIRACETAM 500 MG in SODIUM CHLORIDE 0.9% 100 ML IV SCH ×2 (09:00→21:20)
[2019-02-24] MEDS: METHYLPREDNISOLONE SOD SUCC 40 MG/ML VIAL IV SCH (09:00)
[2019-02-24 09:14] LABS: BG BASE EXCESS -2.2 mmol/L (-2.0-2.0); BG CARBOXYHEMOGLOBIN 0.9 % (0.5-1.5); BG DEOXYHEMOGLOBIN 14.7 % (0.0-5.0); BG FRACTION INSPIRED OXYGEN 70; BG HCO3 ACT 21.2 mmol/L (22.0-26.0); BG METHEMOGLOBIN 0.3 % (0.0-1.5); BG OXYGEN SATURATION 85.1 % (92.0-98.5); BG OXYHEMOGLOBIN 84.1 % (94.0-97.0); BG PCO2 32.1 mmHg (35.0-45.0); BG PH 7.437 (7.350-7.450); BG PO2 52.4 mmHg (75.0-100.0); BG SAMPLE SITE RIGHT RADIAL; BG TIDAL VOLUME(mL) 550 mL; BG TOTAL HEMOGLOBIN 12.1 g/dL (12.0-18.0); BG VENT MODE VENT - A/C; BG VENT RATE 20 set
[2019-02-24 09:24] LABS: HEMATOCRIT. 31.2 % (42.0-52.0); HEMOGLOBIN. 10.2 g/dL (14.0-18.0); MEAN CORPUSCULAR HEMOGLOBIN 28.6 pg (28.0-32.0); MEAN CORPUSCULAR VOLUME 87.7 fL (80.0-94.0); MEAN PLATELET VOLUME 10.1 fl (7.4-10.4); PLATELET 131 x1000/uL (130-400); RED BLOOD CELL COUNT 3.56 mill/uL (4.7-6.1)
[2019-02-24 09:46] LABS: CHLORIDE 114 mEq/L (98-107)
[2019-02-24 10:51] LABS: BG BASE EXCESS -0.8 mmol/L (-2.0-2.0); BG CARBOXYHEMOGLOBIN 0.5 % (0.5-1.5); BG DEOXYHEMOGLOBIN 0.6 % (0.0-5.0); BG FRACTION INSPIRED OXYGEN 100; BG HCO3 ACT 23.4 mmol/L (22.0-26.0); BG METHEMOGLOBIN 0.2 % (0.0-1.5); BG OXYGEN SATURATION 99.4 % (92.0-98.5); BG OXYHEMOGLOBIN 98.7 % (94.0-97.0); BG PCO2 37.4 mmHg (35.0-45.0); BG PH 7.415 (7.350-7.450); BG PO2 251.2 mmHg (75.0-100.0); BG SAMPLE SITE LEFT RADIAL; BG TIDAL VOLUME(mL) 550 mL; BG TOTAL HEMOGLOBIN 12.5 g/dL (12.0-18.0); BG VENT MODE VENT - A/C; BG VENT RATE 20 set
[2019-02-24] MEDS: ASPIRIN 81MG EC TABLET PO SCH (11:30)
[2019-02-24 12:17] LABS: PLATELET ESTIMATE NORMAL
[2019-02-24] MEDS: DEXTROSE 5% WATER 1,000 ML IV SCH ×2 (12:19→23:11)
[2019-02-24] MEDS: ACETYLCYSTEINE 100MG/ML 10% VIAL 4ML INH SCH ×2 (12:39→16:31)
[2019-02-24 12:51] LABS: BG BASE EXCESS -1.6 mmol/L (-2.0-2.0); BG CARBOXYHEMOGLOBIN 0.8 % (0.5-1.5); BG DEOXYHEMOGLOBIN 7.7 % (0.0-5.0); BG FRACTION INSPIRED OXYGEN 80; BG HCO3 ACT 22.4 mmol/L (22.0-26.0); BG METHEMOGLOBIN 0.3 % (0.0-1.5); BG OXYGEN SATURATION 92.2 % (92.0-98.5); BG OXYHEMOGLOBIN 91.2 % (94.0-97.0); BG PCO2 35.3 mmHg (35.0-45.0); BG PO2 69.4 mmHg (75.0-100.0); BG SAMPLE SITE LEFT RADIAL; BG TIDAL VOLUME(mL) 550 mL; BG TOTAL HEMOGLOBIN 12.3 g/dL (12.0-18.0); BG VENT MODE VENT - A/C; BG VENT RATE 20 set
[2019-02-24] MEDS ORDERED: MIDAZOLAM HCL 2 MG/2 ML VIAL ONE (17:24)
[2019-02-24] MEDS ORDERED: ROCURONIUM BROMIDE 10MG/ML VIAL 5ML IV ONE (17:24)
[2019-02-24] MEDS ORDERED: SKIN ADHESIVE 0.7 GM EA TOP ONE (18:00)
[2019-02-25] VITALS (26 sets, daily range): BP systolic 109–145; BP diastolic 49–84
[2019-02-25] MEDS: METOCLOPRAMIDE HCL 10MG/2ML VIAL IV SCH ×4 (00:09→17:42)
[2019-02-25] MEDS: BLOOD SUGAR DIAGNOSTIC STRIP TEST SCH ×4 (00:09→17:37)
[2019-02-25] MEDS: IPRATROPIUM/ALBUTEROL 0.5-3(2.5)MG/3ML NEB HHN SCH ×6 (00:18→20:30)
[2019-02-25] MEDS: ACETYLCYSTEINE 100MG/ML 10% VIAL 4ML INH SCH ×2 (00:18→15:46)
[2019-02-25 05:19] LABS: HEMATOCRIT. 32.1 % (42.0-52.0); HEMOGLOBIN. 10.4 g/dL (14.0-18.0); MEAN CORPUSCULAR HEMOGLOBIN 28.7 pg (28.0-32.0); MEAN CORPUSCULAR VOLUME 88.8 fL (80.0-94.0); MEAN PLATELET VOLUME 10.2 fl (7.4-10.4); PLATELET 148 x1000/uL (130-400); RED BLOOD CELL COUNT 3.62 mill/uL (4.7-6.1); RED CELL DISTRIBUTION WIDTH 18.8 % (11.6-14.6)
[2019-02-25 05:28] LABS: CHLORIDE 97 mEq/L (98-107)
[2019-02-25] MEDS: INSULIN LISPRO 100 UNITS/ML SUBCUT SCH ×4 (06:00→17:37)
[2019-02-25] MEDS: SODIUM CHLORIDE 0.45% 1,000 ML IV SCH ×2 (06:50→23:36)
[2019-02-25 06:59] LABS: BG BASE EXCESS 0.1 mmol/L (-2.0-2.0); BG CARBOXYHEMOGLOBIN 0.6 % (0.5-1.5); BG DEOXYHEMOGLOBIN 3.2 % (0.0-5.0); BG HCO3 ACT 23.8 mmol/L (22.0-26.0); BG METHEMOGLOBIN 0.4 % (0.0-1.5); BG OXYGEN SATURATION 96.8 % (92.0-98.5); BG OXYHEMOGLOBIN 95.8 % (94.0-97.0); BG PCO2 35.6 mmHg (35.0-45.0); BG PH 7.443 (7.350-7.450); BG PO2 91.7 mmHg (75.0-100.0); BG SAMPLE SITE RIGHT BRACHIAL; BG TIDAL VOLUME(mL) 550 mL; BG TOTAL HEMOGLOBIN 12.2 g/dL (12.0-18.0); BG VENT MODE VENT - A/C; BG VENT RATE 20 set
[2019-02-25] MEDS: ASPIRIN 81MG EC TABLET PO SCH (09:19)
[2019-02-25] MEDS: METHYLPREDNISOLONE SOD SUCC 40 MG/ML VIAL IV SCH (09:19)
[2019-02-25] MEDS: LOSARTAN POTASSIUM 25 MG TABLET PO SCH ×2 (09:20→21:26)
[2019-02-25] MEDS: DOCUSATE SODIUM SUGAR FREE 100MG/10ML UDC NG SCH (09:20)
[2019-02-25] MEDS: ASCORBIC ACID 500 MG TABLET PO SCH (09:20)
[2019-02-25] MEDS: AMLODIPINE 2.5MG TABLET PO SCH ×2 (09:48→21:26)
[2019-02-25] MEDS: ZINC SULFATE 220 MG ( 50 ) CAPSULE PO SCH (09:49)
[2019-02-25] MEDS: PANTOPRAZOLE SODIUM 40 MG/VIAL IV SCH (09:49)
[2019-02-25] MEDS: LEVETIRACETAM 500 MG in SODIUM CHLORIDE 0.9% 100 ML IV SCH (09:49)
[2019-02-25 16:05] LABS: PLATELET ESTIMATE NORMAL
[2019-02-26] VITALS (12 sets, daily range): BP systolic 99–123; BP diastolic 25–80
[2019-02-26] MEDS: ACETYLCYSTEINE 100MG/ML 10% VIAL 4ML INH SCH ×3 (00:07→16:50)
[2019-02-26] MEDS: IPRATROPIUM/ALBUTEROL 0.5-3(2.5)MG/3ML NEB HHN SCH ×6 (00:08→19:49)
[2019-02-26] MEDS: LEVETIRACETAM 500 MG in SODIUM CHLORIDE 0.9% 100 ML IV SCH ×3 (00:14→21:57)
[2019-02-26] MEDS: METOCLOPRAMIDE HCL 10MG/2ML VIAL IV SCH ×4 (00:26→17:52)
[2019-02-26] MEDS: BLOOD SUGAR DIAGNOSTIC STRIP TEST SCH ×4 (00:26→17:19)
[2019-02-26] MEDS: LORAZEPAM 2MG/ML CPJ IV PRN ×2 (03:06→13:41)
[2019-02-26] MEDS: INSULIN LISPRO 100 UNITS/ML SUBCUT SCH ×4 (06:00→17:52)
[2019-02-26 08:08] LABS: HEMATOCRIT. 32.8 % (42.0-52.0); HEMOGLOBIN. 10.6 g/dL (14.0-18.0); MEAN CORPUSCULAR HEMOGLOBIN 28.3 pg (28.0-32.0); MEAN CORPUSCULAR VOLUME 87.4 fL (80.0-94.0); PLATELET 167 x1000/uL (130-400); RED BLOOD CELL COUNT 3.76 mill/uL (4.7-6.1); RED CELL DISTRIBUTION WIDTH 19.1 % (11.6-14.6)
[2019-02-26 08:10] LABS: CHLORIDE 105 mEq/L (98-107)
[2019-02-26] MEDS: PANTOPRAZOLE SODIUM 40 MG/VIAL IV SCH (08:12)
[2019-02-26] MEDS: METHYLPREDNISOLONE SOD SUCC 40 MG/ML VIAL IV SCH (08:12)
[2019-02-26] MEDS: ASPIRIN 81MG EC TABLET PO SCH (08:12)
[2019-02-26] MEDS: ASCORBIC ACID 500 MG TABLET PO SCH (08:12)
[2019-02-26] MEDS: ZINC SULFATE 220 MG ( 50 ) CAPSULE PO SCH (08:12)
[2019-02-26] MEDS: DOCUSATE SODIUM SUGAR FREE 100MG/10ML UDC NG SCH (08:13)
[2019-02-26] MEDS: LOSARTAN POTASSIUM 25 MG TABLET PO SCH ×2 (08:13→20:40)
[2019-02-26] MEDS: AMLODIPINE 2.5MG TABLET PO SCH ×2 (08:13→20:40)
[2019-02-26 08:40] LABS: BG BASE EXCESS -2.2 mmol/L (-2.0-2.0); BG CARBOXYHEMOGLOBIN 0.3 % (0.5-1.5); BG FRACTION INSPIRED OXYGEN 70; BG HCO3 ACT 20.5 mmol/L (22.0-26.0); BG METHEMOGLOBIN 0.3 % (0.0-1.5); BG OXYHEMOGLOBIN 94.4 % (94.0-97.0); BG PCO2 29.1 mmHg (35.0-45.0); BG PH 7.466 (7.350-7.450); BG PO2 75.8 mmHg (75.0-100.0); BG SAMPLE SITE LEFT RADIAL; BG TIDAL VOLUME(mL) 550 mL; BG TOTAL HEMOGLOBIN 11.6 g/dL (12.0-18.0); BG VENT MODE VENT - A/C; BG VENT RATE 16 set
[2019-02-26 13:28] LABS: PLATELET ESTIMATE NORMAL
[2019-02-26] MEDS: SODIUM CHLORIDE 0.45% 1,000 ML IV SCH (15:25)
[2019-02-26] MEDS ORDERED: LORAZEPAM 2MG/ML CPJ IV PRN (17:00)
[2019-02-27] VITALS (11 sets, daily range): BP systolic 96–124; BP diastolic 61–75
[2019-02-27] MEDS: IPRATROPIUM/ALBUTEROL 0.5-3(2.5)MG/3ML NEB HHN SCH ×6 (00:01→20:14)
[2019-02-27] MEDS: ACETYLCYSTEINE 100MG/ML 10% VIAL 4ML INH SCH ×4 (00:01→16:24)
[2019-02-27] MEDS: BLOOD SUGAR DIAGNOSTIC STRIP TEST SCH ×4 (00:22→17:49)
[2019-02-27] MEDS: METOCLOPRAMIDE HCL 10MG/2ML VIAL IV SCH ×4 (00:22→18:05)
[2019-02-27] MEDS: INSULIN LISPRO 100 UNITS/ML SUBCUT SCH ×4 (05:42→17:49)
[2019-02-27] MEDS: SODIUM CHLORIDE 0.45% 1,000 ML IV SCH (07:20)
[2019-02-27] MEDS: LOSARTAN POTASSIUM 25 MG TABLET PO SCH ×2 (08:23→20:52)
[2019-02-27] MEDS: AMLODIPINE 2.5MG TABLET PO SCH ×2 (08:23→20:52)
[2019-02-27] MEDS: ZINC SULFATE 220 MG ( 50 ) CAPSULE PO SCH (08:24)
[2019-02-27] MEDS: METHYLPREDNISOLONE SOD SUCC 40 MG/ML VIAL IV SCH (08:24)
[2019-02-27] MEDS: PANTOPRAZOLE SODIUM 40 MG/VIAL IV SCH (08:24)
[2019-02-27] MEDS: DOCUSATE SODIUM SUGAR FREE 100MG/10ML UDC NG SCH (08:24)
[2019-02-27] MEDS: ASPIRIN 81MG EC TABLET PO SCH (08:24)
[2019-02-27] MEDS: ASCORBIC ACID 500 MG TABLET PO SCH (08:24)
[2019-02-27] MEDS: LEVETIRACETAM 500 MG in SODIUM CHLORIDE 0.9% 100 ML IV SCH ×2 (08:26→21:09)
[2019-02-27] MEDS: MORPHINE SULFATE 2 MG/ML CPJ (NOT FOR IM USE) IV PRN (13:13)
[2019-02-27] MEDS ORDERED: LORAZEPAM 2MG/ML CPJ IV PRN (13:15)
[2019-02-27 13:32] LABS: BG BASE EXCESS -0.7 mmol/L (-2.0-2.0); BG CARBOXYHEMOGLOBIN 0.5 % (0.5-1.5); BG DEOXYHEMOGLOBIN 18.8 % (0.0-5.0); BG FRACTION INSPIRED OXYGEN 100; BG HCO3 ACT 23.7 mmol/L (22.0-26.0); BG METHEMOGLOBIN 0.2 % (0.0-1.5); BG OXYGEN SATURATION 81.1 % (92.0-98.5); BG OXYHEMOGLOBIN 80.5 % (94.0-97.0); BG PCO2 38.2 mmHg (35.0-45.0); BG PH 7.411 (7.350-7.450); BG PO2 50.9 mmHg (75.0-100.0); BG SAMPLE SITE LEFT RADIAL; BG TIDAL VOLUME(mL) 550 mL; BG TOTAL HEMOGLOBIN 12.5 g/dL (12.0-18.0); BG VENT MODE VENT - A/C; BG VENT RATE 14 set
[2019-02-28] VITALS (11 sets, daily range): BP systolic 85–162; BP diastolic 46–87
[2019-02-28] MEDS: BLOOD SUGAR DIAGNOSTIC STRIP TEST SCH ×5 (00:07→23:55)
[2019-02-28] MEDS: METOCLOPRAMIDE HCL 10MG/2ML VIAL IV SCH ×5 (00:08→23:55)
[2019-02-28] MEDS: IPRATROPIUM/ALBUTEROL 0.5-3(2.5)MG/3ML NEB HHN SCH ×6 (00:28→21:16)
[2019-02-28] MEDS: ACETYLCYSTEINE 100MG/ML 10% VIAL 4ML INH SCH ×3 (00:45→16:22)
[2019-02-28] MEDS: SODIUM CHLORIDE 0.45% 1,000 ML IV SCH ×2 (01:42→17:50)
[2019-02-28] MEDS: INSULIN LISPRO 100 UNITS/ML SUBCUT SCH ×5 (05:29→23:55)
[2019-02-28] MEDS: AMLODIPINE 2.5MG TABLET PO SCH ×2 (09:00→20:52)
[2019-02-28] MEDS: LOSARTAN POTASSIUM 25 MG TABLET PO SCH ×2 (09:00→20:53)
[2019-02-28] MEDS: PANTOPRAZOLE SODIUM 40 MG/VIAL IV SCH (09:40)
[2019-02-28] MEDS: LEVETIRACETAM 500 MG in SODIUM CHLORIDE 0.9% 100 ML IV SCH ×2 (09:40→20:52)
[2019-02-28] MEDS: ASPIRIN 81MG EC TABLET PO SCH (09:40)
[2019-02-28] MEDS: METHYLPREDNISOLONE SOD SUCC 40 MG/ML VIAL IV SCH (09:40)
[2019-02-28] MEDS: ASCORBIC ACID 500 MG TABLET PO SCH (09:40)
[2019-02-28] MEDS: DOCUSATE SODIUM SUGAR FREE 100MG/10ML UDC NG SCH (09:40)
[2019-02-28] MEDS: ZINC SULFATE 220 MG ( 50 ) CAPSULE PO SCH (09:40)
[2019-03-01] VITALS (12 sets, daily range): BP systolic 93–145; BP diastolic 27–96
[2019-03-01] MEDS: IPRATROPIUM/ALBUTEROL 0.5-3(2.5)MG/3ML NEB HHN SCH ×6 (00:25→20:11)
[2019-03-01] MEDS: ACETYLCYSTEINE 100MG/ML 10% VIAL 4ML INH SCH ×2 (00:26→08:24)
[2019-03-01] MEDS: LORAZEPAM 2MG/ML CPJ IV PRN (05:26)
[2019-03-01] MEDS: INSULIN LISPRO 100 UNITS/ML SUBCUT SCH ×4 (06:00→23:37)
[2019-03-01] MEDS: BLOOD SUGAR DIAGNOSTIC STRIP TEST SCH ×4 (06:11→23:32)
[2019-03-01] MEDS: METOCLOPRAMIDE HCL 10MG/2ML VIAL IV SCH ×4 (06:11→23:32)
[2019-03-01 08:37] LABS: BG BASE EXCESS 1.5 mmol/L (-2.0-2.0); BG CARBOXYHEMOGLOBIN 0.1 % (0.5-1.5); BG DEOXYHEMOGLOBIN 3.9 % (0.0-5.0); BG FRACTION INSPIRED OXYGEN 70; BG HCO3 ACT 25.1 mmol/L (22.0-26.0); BG METHEMOGLOBIN 0.2 % (0.0-1.5); BG OXYGEN SATURATION 96.1 % (92.0-98.5); BG OXYHEMOGLOBIN 95.8 % (94.0-97.0); BG PCO2 36.4 mmHg (35.0-45.0); BG PH 7.457 (7.350-7.450); BG SAMPLE SITE RIGHT RADIAL; BG TIDAL VOLUME(mL) 550 mL; BG VENT MODE VENT - A/C; BG VENT RATE 14 set
[2019-03-01] MEDS: LEVETIRACETAM 500 MG in SODIUM CHLORIDE 0.9% 100 ML IV SCH ×2 (08:51→21:11)
[2019-03-01] MEDS: ASPIRIN 81MG EC TABLET PO SCH (08:52)
[2019-03-01] MEDS: ZINC SULFATE 220 MG ( 50 ) CAPSULE PO SCH (08:52)
[2019-03-01] MEDS: ASCORBIC ACID 500 MG TABLET PO SCH (08:52)
[2019-03-01] MEDS: AMLODIPINE 2.5MG TABLET PO SCH ×2 (08:52→21:00)
[2019-03-01] MEDS: LOSARTAN POTASSIUM 25 MG TABLET PO SCH ×2 (08:52→21:00)
[2019-03-01] MEDS: PANTOPRAZOLE SODIUM 40 MG/VIAL IV SCH (08:52)
[2019-03-01] MEDS: DOCUSATE SODIUM SUGAR FREE 100MG/10ML UDC NG SCH (08:53)
[2019-03-01 10:12] LABS: HEMATOCRIT. 33.7 % (42.0-52.0); HEMOGLOBIN. 10.9 g/dL (14.0-18.0); MEAN CORPUSCULAR HEMOGLOBIN 28.3 pg (28.0-32.0); MEAN CORPUSCULAR VOLUME 87.5 fL (80.0-94.0); MEAN PLATELET VOLUME 10.2 fl (7.4-10.4); PLATELET 192 x1000/uL (130-400); RED BLOOD CELL COUNT 3.85 mill/uL (4.7-6.1); RED CELL DISTRIBUTION WIDTH 19.3 % (11.6-14.6)
[2019-03-01 10:23] LABS: CHLORIDE 105 mEq/L (98-107)
[2019-03-01 11:48] LABS: PLATELET ESTIMATE NORMAL
[2019-03-02] VITALS (12 sets, daily range): BP systolic 94–121; BP diastolic 40–76
[2019-03-02] MEDS: IPRATROPIUM/ALBUTEROL 0.5-3(2.5)MG/3ML NEB HHN SCH ×7 (00:26→23:58)
[2019-03-02] MEDS: METOCLOPRAMIDE HCL 10MG/2ML VIAL IV SCH ×3 (05:03→18:15)
[2019-03-02] MEDS: BLOOD SUGAR DIAGNOSTIC STRIP TEST SCH ×3 (05:08→18:15)
[2019-03-02] MEDS: INSULIN LISPRO 100 UNITS/ML SUBCUT SCH ×3 (05:09→18:00)
[2019-03-02] MEDS: ASPIRIN 81MG EC TABLET PO SCH (08:17)
[2019-03-02] MEDS: ASCORBIC ACID 500 MG TABLET PO SCH (08:17)
[2019-03-02] MEDS: DOCUSATE SODIUM 100MG CAPSULE PO PRN (08:17)
[2019-03-02] MEDS: ZINC SULFATE 220 MG ( 50 ) CAPSULE PO SCH (08:17)
[2019-03-02] MEDS: PANTOPRAZOLE SODIUM 40 MG/VIAL IV SCH (08:17)
[2019-03-02] MEDS: LOSARTAN POTASSIUM 25 MG TABLET PO SCH ×2 (08:18→21:00)
[2019-03-02] MEDS: AMLODIPINE 2.5MG TABLET PO SCH ×2 (08:20→21:00)
[2019-03-02] MEDS: LEVETIRACETAM 500 MG in SODIUM CHLORIDE 0.9% 100 ML IV SCH ×2 (08:24→21:25)
[2019-03-02] MEDS: DOCUSATE SODIUM SUGAR FREE 100MG/10ML UDC NG SCH (08:24)
[2019-03-02 13:19] LABS: HEMATOCRIT. 29.7 % (42.0-52.0); HEMOGLOBIN. 9.9 g/dL (14.0-18.0); MEAN CORPUSCULAR HEMOGLOBIN 28.9 pg (28.0-32.0); MEAN PLATELET VOLUME 10.2 fl (7.4-10.4); PLATELET 163 x1000/uL (130-400); RED BLOOD CELL COUNT 3.41 mill/uL (4.7-6.1); RED CELL DISTRIBUTION WIDTH 19.5 % (11.6-14.6)
[2019-03-02 13:37] LABS: CHLORIDE 106 mEq/L (98-107)
[2019-03-02 14:17] LABS: PLATELET ESTIMATE NORMAL
[2019-03-02] MEDS ORDERED: WATER IV PRN (17:00)
[2019-03-02] MEDS ORDERED: SODIUM PHOS M BASIC D BASIC IV PRN (17:00)
[2019-03-02] MEDS ORDERED: DEXT IV PRN (17:00)
[2019-03-03] VITALS (12 sets, daily range): BP systolic 96–132; BP diastolic 41–85
[2019-03-03] MEDS: METOCLOPRAMIDE HCL 10MG/2ML VIAL IV SCH ×3 (00:16→12:00)
[2019-03-03] MEDS: BLOOD SUGAR DIAGNOSTIC STRIP TEST SCH ×4 (00:17→17:04)
[2019-03-03] MEDS: IPRATROPIUM/ALBUTEROL 0.5-3(2.5)MG/3ML NEB HHN SCH ×5 (03:51→20:25)
[2019-03-03] MEDS: INSULIN LISPRO 100 UNITS/ML SUBCUT SCH ×4 (06:00→17:04)
[2019-03-03] MEDS: DOCUSATE SODIUM SUGAR FREE 100MG/10ML UDC NG SCH (09:00)
[2019-03-03] MEDS: AMLODIPINE 2.5MG TABLET PO SCH (09:00)
[2019-03-03] MEDS: LOSARTAN POTASSIUM 25 MG TABLET PO SCH ×2 (09:00→21:00)
[2019-03-03] MEDS: LEVETIRACETAM 500 MG in SODIUM CHLORIDE 0.9% 100 ML IV SCH ×2 (09:31→21:40)
[2019-03-03] MEDS: ASPIRIN 81MG EC TABLET PO SCH (09:31)
[2019-03-03] MEDS: PANTOPRAZOLE SODIUM 40 MG/VIAL IV SCH (09:31)
[2019-03-03 13:47] LABS: BG BASE EXCESS 4.6 mmol/L (-2.0-2.0); BG CARBOXYHEMOGLOBIN 0.2 % (0.5-1.5); BG DEOXYHEMOGLOBIN 9.3 % (0.0-5.0); BG FRACTION INSPIRED OXYGEN 40; BG HCO3 ACT 27.3 mmol/L (22.0-26.0); BG METHEMOGLOBIN 0.3 % (0.0-1.5); BG OXYGEN SATURATION 90.7 % (92.0-98.5); BG OXYHEMOGLOBIN 90.2 % (94.0-97.0); BG PH 7.523 (7.350-7.450); BG PO2 56.5 mmHg (75.0-100.0); BG SAMPLE SITE LEFT RADIAL; BG TIDAL VOLUME(mL) 550 mL; BG TOTAL HEMOGLOBIN 10.7 g/dL (12.0-18.0); BG VENT MODE VENT - A/C; BG VENT RATE 14 set
[2019-03-03] MEDS ORDERED: MORPHINE SULFATE 2 MG/ML CPJ (NOT FOR IM USE) IV PRN (14:30)
[2019-03-03] MEDS: LORAZEPAM 2MG/ML CPJ IV PRN (14:59)
[2019-03-03] MEDS: DILTIAZEM HCL 30MG TABLET PO SCH (17:53)
[2019-03-03] MEDS: SULFAMETHOXAZOLE/TRIMETHOPRIM 800/160MG TABLET PEG SCH (21:40)
[2019-03-04] VITALS (12 sets, daily range): BP systolic 99–128; BP diastolic 43–82
[2019-03-04] MEDS: IPRATROPIUM/ALBUTEROL 0.5-3(2.5)MG/3ML NEB HHN SCH ×6 (00:19→19:57)
[2019-03-04] MEDS: ACETYLCYSTEINE 100MG/ML 10% VIAL 4ML INH SCH ×3 (00:19→16:26)
[2019-03-04] MEDS: BLOOD SUGAR DIAGNOSTIC STRIP TEST SCH ×4 (00:33→18:01)
[2019-03-04] MEDS: DILTIAZEM HCL 30MG TABLET PO SCH ×4 (06:00→18:00)
[2019-03-04] MEDS: INSULIN LISPRO 100 UNITS/ML SUBCUT SCH ×4 (06:00→18:00)
[2019-03-04 08:10] LABS: HEMATOCRIT. 28.4 % (42.0-52.0); HEMOGLOBIN. 9.3 g/dL (14.0-18.0); MEAN CORPUSCULAR HEMOGLOBIN 28.7 pg (28.0-32.0); MEAN CORPUSCULAR VOLUME 87.8 fL (80.0-94.0); MEAN PLATELET VOLUME 10.5 fl (7.4-10.4); PLATELET 144 x1000/uL (130-400); RED BLOOD CELL COUNT 3.24 mill/uL (4.7-6.1); RED CELL DISTRIBUTION WIDTH 20.2 % (11.6-14.6)
[2019-03-04 08:19] LABS: CHLORIDE 107 mEq/L (98-107)
[2019-03-04] MEDS: DOCUSATE SODIUM SUGAR FREE 100MG/10ML UDC NG SCH (09:08)
[2019-03-04] MEDS: SULFAMETHOXAZOLE/TRIMETHOPRIM 800/160MG TABLET PEG SCH ×2 (09:08→21:59)
[2019-03-04] MEDS: ASPIRIN 81MG EC TABLET PO SCH (09:08)
[2019-03-04] MEDS: PANTOPRAZOLE SODIUM 40 MG/VIAL IV SCH (09:08)
[2019-03-04] MEDS: LOSARTAN POTASSIUM 25 MG TABLET PO SCH ×2 (09:08→21:00)
[2019-03-04] MEDS: LEVETIRACETAM 500 MG in SODIUM CHLORIDE 0.9% 100 ML IV SCH ×2 (09:10→21:55)
[2019-03-04 12:22] LABS: BG BASE EXCESS 3.6 mmol/L (-2.0-2.0); BG CARBOXYHEMOGLOBIN 0.3 % (0.5-1.5); BG DEOXYHEMOGLOBIN 3.6 % (0.0-5.0); BG FRACTION INSPIRED OXYGEN 50; BG HCO3 ACT 26.9 mmol/L (22.0-26.0); BG METHEMOGLOBIN 0.4 % (0.0-1.5); BG OXYGEN SATURATION 96.4 % (92.0-98.5); BG OXYHEMOGLOBIN 95.7 % (94.0-97.0); BG PCO2 35.9 mmHg (35.0-45.0); BG PH 7.493 (7.350-7.450); BG PO2 86.5 mmHg (75.0-100.0); BG SAMPLE SITE RIGHT BRACHIAL; BG TIDAL VOLUME(mL) 550 mL; BG TOTAL HEMOGLOBIN 10.4 g/dL (12.0-18.0); BG VENT MODE VENT - A/C; BG VENT RATE 14 set
[2019-03-04 14:03] LABS: PLATELET ESTIMATE NORMAL
[2019-03-05] VITALS (12 sets, daily range): BP systolic 102–130; BP diastolic 51–74
[2019-03-05] MEDS: ACETYLCYSTEINE 100MG/ML 10% VIAL 4ML INH SCH ×3 (00:07→16:56)
[2019-03-05] MEDS: IPRATROPIUM/ALBUTEROL 0.5-3(2.5)MG/3ML NEB HHN SCH ×6 (00:07→20:08)
[2019-03-05] MEDS: DILTIAZEM HCL 30MG TABLET PO SCH ×4 (06:00→17:56)
[2019-03-05] MEDS: INSULIN LISPRO 100 UNITS/ML SUBCUT SCH ×4 (06:00→17:41)
[2019-03-05] MEDS: BLOOD SUGAR DIAGNOSTIC STRIP TEST SCH ×4 (06:38→17:41)
[2019-03-05] MEDS: DOCUSATE SODIUM SUGAR FREE 100MG/10ML UDC NG SCH (09:00)
[2019-03-05] MEDS: PANTOPRAZOLE SODIUM 40 MG/VIAL IV SCH (09:13)
[2019-03-05] MEDS: LEVETIRACETAM 500 MG in SODIUM CHLORIDE 0.9% 100 ML IV SCH ×2 (09:14→21:09)
[2019-03-05] MEDS: SULFAMETHOXAZOLE/TRIMETHOPRIM 800/160MG TABLET PEG SCH ×2 (09:15→21:09)
[2019-03-05] MEDS: ASPIRIN 81MG EC TABLET PO SCH (09:15)
[2019-03-05] MEDS: LOSARTAN POTASSIUM 25 MG TABLET PO SCH ×2 (09:16→21:09)
[2019-03-05] MEDS: NYSTATIN POWDER 15GM TOP SCH ×2 (12:47→17:55)
[2019-03-05] MEDS: APIXABAN 2.5 MG TABLET PO SCH (17:54)
[2019-03-06] VITALS (14 sets, daily range): BP systolic 105–143; BP diastolic 59–83
[2019-03-06] MEDS: ACETYLCYSTEINE 100MG/ML 10% VIAL 4ML INH SCH ×3 (00:10→16:55)
[2019-03-06] MEDS: IPRATROPIUM/ALBUTEROL 0.5-3(2.5)MG/3ML NEB HHN SCH ×6 (00:11→20:14)
[2019-03-06] MEDS: BLOOD SUGAR DIAGNOSTIC STRIP TEST SCH ×4 (00:56→17:15)
[2019-03-06] MEDS: DILTIAZEM HCL 30MG TABLET PO SCH ×4 (01:29→17:17)
[2019-03-06] MEDS: INSULIN LISPRO 100 UNITS/ML SUBCUT SCH ×4 (06:00→17:17)
[2019-03-06] MEDS: NYSTATIN POWDER 15GM TOP SCH ×3 (08:28→16:26)
[2019-03-06] MEDS: SULFAMETHOXAZOLE/TRIMETHOPRIM 800/160MG TABLET PEG SCH ×2 (08:28→21:23)
[2019-03-06] MEDS: PANTOPRAZOLE SODIUM 40 MG/VIAL IV SCH (08:28)
[2019-03-06] MEDS: APIXABAN 2.5 MG TABLET PO SCH ×2 (08:29→17:14)
[2019-03-06] MEDS: LOSARTAN POTASSIUM 25 MG TABLET PO SCH ×2 (08:29→21:06)
[2019-03-06] MEDS: ASPIRIN 81MG EC TABLET PO SCH (08:29)
[2019-03-06 08:52] LABS: HEMATOCRIT. 27.2 % (42.0-52.0); HEMOGLOBIN. 9.1 g/dL (14.0-18.0); MEAN CORPUSCULAR HEMOGLOBIN 29.4 pg (28.0-32.0); MEAN CORPUSCULAR VOLUME 88.1 fL (80.0-94.0); MEAN PLATELET VOLUME 9.7 fl (7.4-10.4); PLATELET 153 x1000/uL (130-400); RED BLOOD CELL COUNT 3.08 mill/uL (4.7-6.1); RED CELL DISTRIBUTION WIDTH 20.2 % (11.6-14.6)
[2019-03-06 08:57] LABS: CHLORIDE 108 mEq/L (98-107)
[2019-03-06] MEDS: LEVETIRACETAM 500 MG in SODIUM CHLORIDE 0.9% 100 ML IV SCH ×2 (09:19→21:06)
[2019-03-06 14:49] LABS: PLATELET ESTIMATE NORMAL
[2019-03-07] VITALS (11 sets, daily range): BP systolic 104–153; BP diastolic 46–70
[2019-03-07] MEDS: ACETYLCYSTEINE 100MG/ML 10% VIAL 4ML INH SCH ×3 (00:23→15:31)
[2019-03-07] MEDS: IPRATROPIUM/ALBUTEROL 0.5-3(2.5)MG/3ML NEB HHN SCH ×5 (00:24→15:32)
[2019-03-07] MEDS: DILTIAZEM HCL 30MG TABLET PO SCH ×4 (01:33→17:06)
[2019-03-07] MEDS: INSULIN LISPRO 100 UNITS/ML SUBCUT SCH ×4 (06:00→17:36)
[2019-03-07] MEDS: BLOOD SUGAR DIAGNOSTIC STRIP TEST SCH ×4 (06:56→17:36)
[2019-03-07] MEDS: APIXABAN 2.5 MG TABLET PO SCH ×2 (08:40→16:43)
[2019-03-07] MEDS: NYSTATIN POWDER 15GM TOP SCH ×3 (08:40→16:43)
[2019-03-07] MEDS: PANTOPRAZOLE SODIUM 40 MG/VIAL IV SCH (08:40)
[2019-03-07] MEDS: LOSARTAN POTASSIUM 25 MG TABLET PO SCH (08:40)
[2019-03-07] MEDS: SULFAMETHOXAZOLE/TRIMETHOPRIM 800/160MG TABLET PEG SCH (08:40)
[2019-03-07] MEDS: ASPIRIN 81MG EC TABLET PO SCH (08:40)
[2019-03-07] MEDS: LEVETIRACETAM 500 MG in SODIUM CHLORIDE 0.9% 100 ML IV SCH (08:40)
[2019-03-07] MEDS ORDERED: LEVETIRACETAM 500MG/5ML CUP PO SCH (21:00)
== END 2019-03-07 19:43 | DRG 5 ==
LOC: ER 11:30 → EDBD 12:55 → CVICU 12:55 → EDBEDREQ 13:09 → ENRESERV 13:16 → 5EST 02-25 16:00
PROVIDERS: ADMIT Internal Medicine; ATTEND Internal Medicine
PROC: 5A1955Z Respiratory Ventilation, Greater than 96 Consecutive Hours (ICD-10-PCS; principal; 2019-02-12)
PROC: 5A12012 Performance of Cardiac Output, Single, Manual (ICD-10-PCS; 2019-02-12)
PROC: 0BH17EZ Insertion of Endotracheal Airway into Trachea, Via Natural or Artificial Opening (ICD-10-PCS; 2019-02-12)
PROC: 03HY32Z Insertion of Monitoring Device into Upper Artery, Percutaneous Approach (ICD-10-PCS; 2019-02-12)
PROC: 4A133B1 Monitoring of Arterial Pressure, Peripheral, Percutaneous Approach (ICD-10-PCS; 2019-02-12)
PROC: 4A133J1 Monitoring of Arterial Pulse, Peripheral, Percutaneous Approach (ICD-10-PCS; 2019-02-12)
PROC: 02HV33Z Insertion of Infusion Device into Superior Vena Cava, Percutaneous Approach (ICD-10-PCS; 2019-02-14)
PROC: B548ZZA Ultrasonography of Superior Vena Cava, Guidance (ICD-10-PCS; 2019-02-14)
PROC: 4A00X4Z Measurement of Central Nervous Electrical Activity, External Approach (ICD-10-PCS; 2019-02-15)
PROC: 0DH63UZ Insertion of Feeding Device into Stomach, Percutaneous Approach (ICD-10-PCS; 2019-02-23)
PROC: 0B113F4 Bypass Trachea to Cutaneous with Tracheostomy Device, Percutaneous Approach (ICD-10-PCS; 2019-02-24)
DX: A41.9 Sepsis, unspecified organism (principal); I46.9 Cardiac arrest, cause unspecified; J69.0 Pneumonitis due to inhalation of food and vomit; K72.00 Acute and subacute hepatic failure without coma; E43 Unspecified severe protein-calorie malnutrition; G92 Toxic encephalopathy; J96.21 Acute and chronic respiratory failure with hypoxia; R13.10 Dysphagia, unspecified; N17.0 Acute kidney failure with tubular necrosis; R65.21 Severe sepsis with septic shock; I27.20 Pulmonary hypertension, unspecified; E83.51 Hypocalcemia; I42.9 Cardiomyopathy, unspecified; I69.354 Hemiplegia and hemiparesis following cerebral infarction affecting left non-dominant side; I50.42 Chronic combined systolic (congestive) and diastolic (congestive) heart failure; D63.8 Anemia in other chronic diseases classified elsewhere; E78.00 Pure hypercholesterolemia, unspecified; E78.5 Hyperlipidemia, unspecified; E87.0 Hyperosmolality and hypernatremia; E87.1 Hypo-osmolality and hyponatremia; E87.2 Acidosis; I11.0 Hypertensive heart disease with heart failure; E87.5 Hyperkalemia; I25.10 Atherosclerotic heart disease of native coronary artery without angina pectoris; Z66 Do not resuscitate; R62.7 Adult failure to thrive; K29.70 Gastritis, unspecified, without bleeding; K59.00 Constipation, unspecified; J44.9 Chronic obstructive pulmonary disease, unspecified; D69.6 Thrombocytopenia, unspecified; I82.431 Acute embolism and thrombosis of right popliteal vein; I82.411 Acute embolism and thrombosis of right femoral vein; J96.22 Acute and chronic respiratory failure with hypercapnia; E83.42 Hypomagnesemia; E83.39 Other disorders of phosphorus metabolism; I48.19 Other persistent atrial fibrillation; Z51.5 Encounter for palliative care; G93.1 Anoxic brain damage, not elsewhere classified; I73.9 Peripheral vascular disease, unspecified; D68.59 Other primary thrombophilia; L97.519 Non-pressure chronic ulcer of other part of right foot with unspecified severity; L97.529 Non-pressure chronic ulcer of other part of left foot with unspecified severity; Z83.3 Family history of diabetes mellitus; Z92.3 Personal history of irradiation; Z85.841 Personal history of malignant neoplasm of brain; Z85.828 Personal history of other malignant neoplasm of skin; Z93.1 Gastrostomy status; Z82.49 Family history of ischemic heart disease and other diseases of the circulatory system; Z99.11 Dependence on respirator [ventilator] status; Z72.0 Tobacco use; Z99.3 Dependence on wheelchair; Z88.0 Allergy status to penicillin; Z87.81 Personal history of (healed) traumatic fracture; Z86.19 Personal history of other infectious and parasitic diseases; Z68.28 Body mass index [BMI] 28.0-28.9, adult
CPT/HCPCS: 36415; 36600; 71045; 75635; 76770; 76937; 80048; 80061; 80202; 80305; 81003; 82150; 82330; 82375; 82533; 82550; 82553; 82607; 82746; 82805; 82962; 83036; 83540; 83550; 83605; 83615; 83735; 83880; 84100; 84132; 84145; 84478; 84484; 85379; 86705; 86709; 86803; 87070; 87340; 87389; 93005; 93306; 93923; 93970; 94002; 94003; 94640; 94660; 99291; A6261; C1725; C9113; J1650; J1815; J1953; J1956; J2060; J2185; J2250; J2270; J2370; J2405; J2704; J2765; J2920; J2930; J3010; J3370; J3475; J3490; J7030; J7040; J7042; J7050; J7060; J7070; J7608; J7620; P9041; Q9967; A4315